=== PATIENT | male | born 1970 | race Caucasian/White ===

== ENCOUNTER 2017-12-10 10:22 | Outpatient (CLI) | payer BC ==
[~2017-12-10 10:22] MED LIST: LISI-600 PO; METF500T PO
== END 2017-12-10 11:13 | disposition home or self-care (01) ==
LOC: WOUND CARE 10:22 → EDSTATUS 10:30 → WOUND CARE 11:13
PROVIDERS: ATTEND Surgery
DX: E11.621 Type 2 diabetes mellitus with foot ulcer (principal); L97.511 Non-pressure chronic ulcer of other part of right foot limited to breakdown of skin; L97.521 Non-pressure chronic ulcer of other part of left foot limited to breakdown of skin; E11.42 Type 2 diabetes mellitus with diabetic polyneuropathy; I10 Essential (primary) hypertension; Z72.89 Other problems related to lifestyle
CPT/HCPCS: 36416; 82948; 99215

== ENCOUNTER 2019-08-26 08:15 | Day surgery (SDC) | payer BC | END 2019-08-26 10:41 | disposition home or self-care (01) | LOC: WOUND CARE 08:15 | PROVIDERS: ATTEND Surgery | DX: E11.621 Type 2 diabetes mellitus with foot ulcer (principal); L97.512 Non-pressure chronic ulcer of other part of right foot with fat layer exposed; E11.42 Type 2 diabetes mellitus with diabetic polyneuropathy; E11.65 Type 2 diabetes mellitus with hyperglycemia; I10 Essential (primary) hypertension; Z72.89 Other problems related to lifestyle | CPT/HCPCS: 36416; 82948; 97597; A4663; A6021 ==

== ENCOUNTER 2019-09-02 08:20 | Outpatient (CLI) | payer BC | END 2019-09-02 10:04 | disposition home or self-care (01) | LOC: WOUND CARE 08:20 → EDSTATUS 08:30 → WOUND CARE 10:04 | PROVIDERS: ATTEND Surgery | DX: E11.621 Type 2 diabetes mellitus with foot ulcer (principal); L97.512 Non-pressure chronic ulcer of other part of right foot with fat layer exposed; E11.42 Type 2 diabetes mellitus with diabetic polyneuropathy; E11.65 Type 2 diabetes mellitus with hyperglycemia; I10 Essential (primary) hypertension; Z72.89 Other problems related to lifestyle | CPT/HCPCS: 36416; 82948; G0463; A4663; A6021; A6154; A6446 ==

== ENCOUNTER 2019-09-09 07:55 | Day surgery (SDC) | payer BC ==
[2019-09-09] MEDS ORDERED: LIDOcaine 2% 5ml jelly ONE (09:39)
== END 2019-09-09 10:34 | disposition home or self-care (01) ==
LOC: WOUND CARE 07:55
PROVIDERS: ATTEND Surgery
DX: E11.621 Type 2 diabetes mellitus with foot ulcer (principal); L97.512 Non-pressure chronic ulcer of other part of right foot with fat layer exposed; E11.42 Type 2 diabetes mellitus with diabetic polyneuropathy; E11.65 Type 2 diabetes mellitus with hyperglycemia; I10 Essential (primary) hypertension; Z72.89 Other problems related to lifestyle
CPT/HCPCS: 36416; 82948; 97597; A6209; A4663; A6021; A6446

== ENCOUNTER 2019-09-14 09:30 | Day surgery (SDC) | payer BC ==
[2019-09-14] MEDS ORDERED: LIDOcaine 2% 5ml jelly ONE (10:17)
== END 2019-09-14 11:00 | disposition home or self-care (01) ==
LOC: WOUND CARE 09:30
PROVIDERS: ATTEND Surgery
DX: E11.621 Type 2 diabetes mellitus with foot ulcer (principal); L97.512 Non-pressure chronic ulcer of other part of right foot with fat layer exposed; E11.42 Type 2 diabetes mellitus with diabetic polyneuropathy; E11.65 Type 2 diabetes mellitus with hyperglycemia; I10 Essential (primary) hypertension; Z72.89 Other problems related to lifestyle
CPT/HCPCS: 11042; 36416; 82948; 87070; 87075; 87102; 87176; A6266; 87076; 87077; 87186; A4663; A6021; A6446

== ENCOUNTER 2019-09-16 08:30 | Day surgery (SDC) | payer BC | END 2019-09-16 10:25 | disposition home or self-care (01) | LOC: WOUND CARE 08:30 | PROVIDERS: ATTEND Surgery | DX: E11.621 Type 2 diabetes mellitus with foot ulcer (principal); L97.515 Non-pressure chronic ulcer of other part of right foot with muscle involvement without evidence of necrosis; E11.42 Type 2 diabetes mellitus with diabetic polyneuropathy; E11.65 Type 2 diabetes mellitus with hyperglycemia; I10 Essential (primary) hypertension; Z72.89 Other problems related to lifestyle | CPT/HCPCS: 11042; 11043; 36416; A6266; 82948; A4663; A6021; A6154; A6446 ==

== ENCOUNTER 2019-09-20 08:30 | Day surgery (SDC) | payer BC ==
[2019-09-20] MEDS ORDERED: LIDOcaine 2% 5ml jelly ONE ×2 (09:09→09:14)
== END 2019-09-20 11:15 | disposition home or self-care (01) ==
LOC: WOUND CARE 08:30
PROVIDERS: ATTEND Surgery
DX: E11.621 Type 2 diabetes mellitus with foot ulcer (principal); L97.515 Non-pressure chronic ulcer of other part of right foot with muscle involvement without evidence of necrosis; E11.42 Type 2 diabetes mellitus with diabetic polyneuropathy; E11.65 Type 2 diabetes mellitus with hyperglycemia; I10 Essential (primary) hypertension; Z72.89 Other problems related to lifestyle
CPT/HCPCS: 11043; 36416; 82948; 97605; A4663; A6021; A6446

== ENCOUNTER 2019-09-23 08:30 | Day surgery (SDC) | payer BC ==
[2019-09-23] MEDS ORDERED: LIDOcaine 2% 5ml jelly ONE (09:29)
[2019-09-23] MEDS ORDERED: LIDOcaine/PRILOcaine 5gm cream TP ONE (09:33)
[2019-09-23] MEDS ORDERED: LISI1TAB29 PO (14:27)
== END 2019-09-23 11:20 | disposition home or self-care (01) ==
LOC: WOUND CARE 08:30
PROVIDERS: ATTEND Surgery
DX: E11.621 Type 2 diabetes mellitus with foot ulcer (principal); L97.513 Non-pressure chronic ulcer of other part of right foot with necrosis of muscle; E11.42 Type 2 diabetes mellitus with diabetic polyneuropathy; E11.65 Type 2 diabetes mellitus with hyperglycemia; I10 Essential (primary) hypertension; Z72.89 Other problems related to lifestyle
CPT/HCPCS: 11043; 36416; 82948; 97605; A4663; A6021; A6154; A6446

== ENCOUNTER 2019-09-23 11:20 | Inpatient (IN) | payer BC ==
[~2019-09-23] VITALS: Ht 185.4 cm; Wt 100.0 kg
--- NOTE | 2019-09-23 11:56 | NUR ---
Received patient report from CHICHO Gonzales. Awaiting patient arrival.
[2019-09-23 12:15] VITALS: BP 126/91
--- NOTE | 2019-09-23 12:15 | NUR ---
Patient arrived to floor. Abdirizak sanches.
[2019-09-23] MEDS: normal saline 1000ml 1,000 ML IV SCH (12:48)
[2019-09-23] MEDS ORDERED: magnesium Cl slow-release 64mg tablet PO PRN (12:50)
[2019-09-23] MEDS ORDERED: potassium CL 10mEq/100ml bag 100 ML IV PRN ×2 (12:50)
[2019-09-23] MEDS ORDERED: magnesium 4gm in 100ml NS 100 ML IV PRN (12:50)
[2019-09-23] MEDS ORDERED: potassium Cl 20 mEq SR tablet PO PRN (12:50)
[2019-09-23] MEDS ORDERED: magnesium 2GM in 50ml NS 50 ML IV PRN (12:50)
[2019-09-23] MEDS ORDERED: LISI1TAB29 PO (14:27)
--- NOTE | 2019-09-23 16:29 | NUR ---
Patient set up to [facility] wound vac.
[2019-09-23 18:00] VITALS: BP 148/86
[2019-09-23] MEDS ORDERED: piperacillin/tazo 3.375gm/50ml 50 ML IV ONE (18:08)
--- NOTE | 2019-09-23 18:09 | NUR ---
Problems reprioritized. Patient report given, questions answered & plan of care reviewed with CHICHO Kay.
--- NOTE | 2019-09-23 18:09 | NUR ---
Patient in room [facility] 347A. I have received report from CHICHO Chavez and had the opportunity to ask questions and assume patient care. Patient denies CP, n/v, dizziness, pain. Will call pharmacy to request antibiotics (Vanco,and zosyn)
--- NOTE | 2019-09-23 18:10 | NUR ---
Patient in room [facility] 347A. I have received report from CHICHO Heredia and had the opportunity to ask questions and assume patient care.
--- NOTE | 2019-09-23 19:24 | NUR ---
Called pharmacy to request Zosyn and vancomycin
[2019-09-23 19:32] LABS: ALANINE AMINOTRANSFERASE 32 U/L (12-78); ALBUMIN/GLOBULIN RATIO 0.5 (1.1-1.5); ALKALINE PHOSPHATASE 104 IU/L (46-116); ANION GAP 9 (8-16); ASPARTATE AMINO TRANSFERASE 17 U/L (10-37); BILIRUBIN,TOTAL 0.5 MG/DL (0.1-1.0); BLOOD UREA NITROGEN 11 MG/DL (7-18); BUN/CREATININE RATIO 11.5 (5.4-32.0); CALCIUM 9.8 MG/DL (8.5-10.1); CHLORIDE 101 MMOL/L (99-107); CREATININE 0.96 MG/DL (0.60-1.10); GLUCOSE 117 MG/DL (70-104); POTASSIUM 3.5 MMOL/L (3.5-5.1); SODIUM 137 MMOL/L (135-145); TOTAL CARBON DIOXIDE 27.1 MMOL/L (24-32); TOTAL PROTEIN 8.5 G/DL (6.4-8.2); eGFR 83 ML/MIN
[2019-09-23] MEDS: vancomycin/NS 1 GM ADD-VANTAGE 250 ML IV SCH ×2 (20:41→22:51)
[2019-09-24] VITALS: BP 131/83
[2019-09-24] MEDS: VANCOmycin 1250MG/NS 250ml Bag 250 ML IV SCH ×3 (04:27→20:39)
[2019-09-24 05:17] LABS: BASOPHILS % (AUTO) 0.5 % (0-1); EOSINOPHILS # (AUTO) 0.2 X10'3 (0-0.9); LYMPHOCYTES # (AUTO) 3.1 X10'3 (1.1-4.8); LYMPHOCYTES % (AUTO) 34.6 % (21-51); MEAN CORPUSCULAR HEMOGLOBIN 30.9 PG (27.0-31.0); MEAN CORPUSCULAR HGB CONC 35.1 g/dL (33.0-36.5); MEAN CORPUSCULAR VOLUME 87.8 FL (78-98); MEAN PLATELET VOLUME 7.3 FL (7.4-10.4); MONOCYTES # (AUTO) 0.8 X10'3 (0-0.9); MONOCYTES % (AUTO) 8.5 % (2-12); NEUTROPHILS # (AUTO) 4.8 X10'3 (1.8-7.7); NEUTROPHILS % (AUTO) 54.4 % (42-75); PLATELET COUNT 427 X10'3 (140-440); RED BLOOD COUNT 3.87 X10'6 (4.70-6.10); RED CELL DISTRIBUTION WIDTH 13.1 % (11.5-14.5); WHITE BLOOD COUNT 8.9 X10'3 (4.5-11.0)
[2019-09-24 05:19] LABS: HEMOGLOBIN A1C 7.1 % (4.5-6.2)
[2019-09-24 05:35] LABS: ALBUMIN 2.8 G/DL (3.4-5.0); ANION GAP 9 (8-16); BLOOD UREA NITROGEN 11 MG/DL (7-18); BUN/CREATININE RATIO 11.1 (5.4-32.0); CALCIUM 9.3 MG/DL (8.5-10.1); CHLORIDE 102 MMOL/L (99-107); CREATININE 0.99 MG/DL (0.60-1.10); GLUCOSE 110 MG/DL (70-104); MAGNESIUM 1.2 MG/DL (1.5-2.4); POTASSIUM 3.4 MMOL/L (3.5-5.1); SODIUM 138 MMOL/L (135-145); TOTAL CARBON DIOXIDE 26.6 MMOL/L (24-32); eGFR 80 ML/MIN
--- NOTE | 2019-09-24 06:28 | NUR ---
Problems reprioritized. Patient report given, questions answered & plan of care reviewed with CHICHO Chavez. Pt in stable condition at shift change.
[2019-09-24] MEDS: potassium Cl 20 mEq SR tablet PO PRN ×3 (07:31→16:37)
[2019-09-24] MEDS: K and/or MAG REPLACEMENT MC SCH (08:00)
[2019-09-24 09:17] VITALS: BP 118/78
[2019-09-24] MEDS: piperacillin/tazo 3.375gm/50ml 50 ML IV SCH ×3 (09:21→23:32)
[2019-09-24 11:57] VITALS: BP 125/87
[2019-09-24] MEDS ORDERED: HYDROCHLOROTHIAZIDE PO SCH (15:00)
[2019-09-24] MEDS ORDERED: LISINOPRIL PO SCH (15:00)
[2019-09-24] MEDS: lisinopril 20mg tablet PO SCH (15:46)
[2019-09-24] MEDS: HYDROchlorothiazide 25mg tablet PO SCH (15:46)
--- NOTE | 2019-09-24 16:11 | NUR ---
WOUND VAC EDUCATION PROVIDED BY WOUND CARE 1. Patient instructed to call the Wound Center or their Home Health Agency immediately if: * They notice a change in the color or amount of the fluid in the canister. * Their wound looks more red than usual or has a foul smell. * The skin around their wound looks reddened or irritated. * The dressing feels loose or appears to be loose. * They experience any increase or changes in their pain. * The alarm will not turn off. 2. Patient instructed that they should not be disconnected from suction for more than 2 hours at a time. * If they are not able to get the suction back on, they need to remove the dressing and take all of the foam out of the wound. * Then moisten sterile gauze with normal saline and place on/in the wound. * Change the dressing once a day until arrangements have been made to replace the wound vac dressing. 3. Patient instructed to turn the wound vac machine OFF and call 911 or go to the ED immediately if their canister fills rapidly with blood. 4. If any of these occur while in the hospital tell a nurse immediately. Addendum: 09/24/19 at 1611 by Enedelia Danielle RN Amended: Links added.
--- NOTE | 2019-09-24 17:49 | NUR ---
DM consult: Pt with A1c 7.1 admit from the wound care clinic for IV abx for his diabetic foot ulcer. Attempted visit with pt at bedside however pt unavailable out of room. Patient's daughter at bedside provided with protein and DM education with referral to outpatient DM class and RD contact information. Encouraged daughter to reach out if her or pt has any questions. Pt currently on heart healthy CHO controlled diet documented with 100% PO intake. D/w dietary to send double protein BIDLD for satiety and wound healing/skin integrity. [facility] 09/23. Will continue to follow. Recommendations: 1) Continue heart healthy CHO controlled diet 2) Double protein BIDLD 3) Monitor need for verbal f/u educations 4) Bowel care 5) Wt per rx Addendum: 09/24/19 at [address] Amended: Links added.
[2019-09-24 18:00] VITALS: BP 131/81
--- NOTE | 2019-09-24 18:24 | NUR ---
Problems reprioritized. Patient report given, questions answered & plan of care reviewed with CHICHO Lacey.
[2019-09-24] MEDS: lactobacillus rhamnosus 10,000 MMU CELLS/CAPSULE PO SCH (20:39)
[2019-09-25] VITALS: BP 118/74
[2019-09-25] MEDS ORDERED: VANCOMYCIN LEVEL IV ONE (04:30)
[2019-09-25] MEDS: VANCOmycin 1250MG/NS 250ml Bag 250 ML IV SCH (04:55)
[2019-09-25 05:33] LABS: BASOPHILS % (AUTO) 0.5 % (0-1); EOSINOPHILS # (AUTO) 0.2 X10'3 (0-0.9); EOSINOPHILS % (AUTO) 1.7 % (0-6); HEMATOCRIT 34.2 % (42.0-52.0); LYMPHOCYTES # (AUTO) 2.8 X10'3 (1.1-4.8); LYMPHOCYTES % (AUTO) 31.8 % (21-51); MEAN CORPUSCULAR HGB CONC 35.2 g/dL (33.0-36.5); MEAN PLATELET VOLUME 7.5 FL (7.4-10.4); MONOCYTES # (AUTO) 0.9 X10'3 (0-0.9); NEUTROPHILS # (AUTO) 4.9 X10'3 (1.8-7.7); PLATELET COUNT 426 X10'3 (140-440); RED BLOOD COUNT 3.88 X10'6 (4.70-6.10); RED CELL DISTRIBUTION WIDTH 13.3 % (11.5-14.5); WHITE BLOOD COUNT 8.8 X10'3 (4.5-11.0)
[2019-09-25 05:36] LABS: ALBUMIN 2.9 G/DL (3.4-5.0); ANION GAP 9 (8-16); BLOOD UREA NITROGEN 14 MG/DL (7-18); BUN/CREATININE RATIO 10.4 (5.4-32.0); CALCIUM 9.1 MG/DL (8.5-10.1); CHLORIDE 105 MMOL/L (99-107); CREATININE 1.35 MG/DL (0.60-1.10); GLUCOSE 116 MG/DL (70-104); MAGNESIUM 1.5 MG/DL (1.5-2.4); POTASSIUM 4.1 MMOL/L (3.5-5.1); SODIUM 141 MMOL/L (135-145); TOTAL CARBON DIOXIDE 27.3 MMOL/L (24-32); eGFR 56 ML/MIN
[2019-09-25 05:39] LABS: VANCOMYCIN,TROUGH 28.2 UG/ML (6.0-14.0)
[2019-09-25 07:25] VITALS: BP 101/64
[2019-09-25] MEDS: K and/or MAG REPLACEMENT MC SCH (08:00)
[2019-09-25] MEDS: HYDROchlorothiazide 25mg tablet PO SCH (08:05)
[2019-09-25] MEDS: lisinopril 20mg tablet PO SCH (08:06)
[2019-09-25] MEDS: piperacillin/tazo 3.375gm/50ml 50 ML IV SCH ×3 (08:06→23:58)
[2019-09-25] MEDS: lactobacillus rhamnosus 10,000 MMU CELLS/CAPSULE PO SCH ×2 (08:06→19:47)
[2019-09-25] MEDS ORDERED: gadobutrol 10mmol/10ml inj. IV ONE (10:31)
[2019-09-25 11:40] VITALS: BP 115/80
[2019-09-25] MEDS: normal saline 1000ml 1,000 ML IV SCH (15:17)
[2019-09-25] MEDS: VANCOMYCIN 750MG IV in NS 250 ML IV SCH ×2 (15:17→21:28)
[2019-09-25 18:00] VITALS: BP 113/77
--- NOTE | 2019-09-25 18:00 | NUR ---
Problems reprioritized. Patient report given, questions answered & plan of care reviewed with CHICHO Lacey.
--- NOTE | 2019-09-25 18:32 | NUR ---
Patient in room [facility]. I have received report from CHICHO Ramírez and had the opportunity to ask questions and assume patient care.
[2019-09-25 19:00] VITALS: BP 113/77
[2019-09-26 00:30] VITALS: BP 112/79
[2019-09-26] MEDS: VANCOMYCIN 750MG IV in NS 250 ML IV SCH ×2 (05:09→13:05)
[2019-09-26] MEDS: normal saline 1000ml 1,000 ML IV SCH ×3 (05:14→23:43)
[2019-09-26 05:27] LABS: ALBUMIN 2.6 G/DL (3.4-5.0); ANION GAP 8 (8-16); BLOOD UREA NITROGEN 22 MG/DL (7-18); BUN/CREATININE RATIO 7.6 (5.4-32.0); CALCIUM 8.5 MG/DL (8.5-10.1); CHLORIDE 102 MMOL/L (99-107); CREATININE 2.89 MG/DL (0.60-1.10); GLUCOSE 124 MG/DL (70-104); MAGNESIUM 1.7 MG/DL (1.5-2.4); POTASSIUM 3.9 MMOL/L (3.5-5.1); SODIUM 137 MMOL/L (135-145); TOTAL CARBON DIOXIDE 26.8 MMOL/L (24-32); eGFR 23 ML/MIN
[2019-09-26 05:29] LABS: BASOPHILS # (AUTO) 0.1 X10'3 (0-0.2); BASOPHILS % (AUTO) 0.8 % (0-1); EOSINOPHILS # (AUTO) 0.2 X10'3 (0-0.9); EOSINOPHILS % (AUTO) 1.8 % (0-6); HEMATOCRIT 31.8 % (42.0-52.0); HEMOGLOBIN 11.1 g/dl (14.0-17.9); LYMPHOCYTES % (AUTO) 24.5 % (21-51); MEAN CORPUSCULAR HEMOGLOBIN 31.1 PG (27.0-31.0); MEAN CORPUSCULAR HGB CONC 34.8 g/dL (33.0-36.5); MEAN CORPUSCULAR VOLUME 89.3 FL (78-98); MEAN PLATELET VOLUME 7.6 FL (7.4-10.4); MONOCYTES # (AUTO) 0.9 X10'3 (0-0.9); MONOCYTES % (AUTO) 10.6 % (2-12); NEUTROPHILS # (AUTO) 5.1 X10'3 (1.8-7.7); NEUTROPHILS % (AUTO) 62.3 % (42-75); PLATELET COUNT 352 X10'3 (140-440); RED BLOOD COUNT 3.56 X10'6 (4.70-6.10); RED CELL DISTRIBUTION WIDTH 12.8 % (11.5-14.5); WHITE BLOOD COUNT 8.2 X10'3 (4.5-11.0)
--- NOTE | 2019-09-26 06:25 | NUR ---
Problems reprioritized. Patient report given, questions answered & plan of care reviewed with CHICHO Lay.
--- NOTE | 2019-09-26 06:41 | NUR ---
Patient in room [facility]. I have received report from Deepthi VALENTINO and Reena RN and had the opportunity to ask questions and assume patient care.
[2019-09-26 07:00] VITALS: BP 110/66
[2019-09-26] MEDS: lactobacillus rhamnosus 10,000 MMU CELLS/CAPSULE PO SCH ×2 (07:55→19:04)
[2019-09-26] MEDS: HYDROchlorothiazide 25mg tablet PO SCH (07:56)
[2019-09-26] MEDS: lisinopril 20mg tablet PO SCH (07:56)
[2019-09-26] MEDS: piperacillin/tazo 3.375gm/50ml 50 ML IV SCH ×3 (07:56→23:43)
[2019-09-26] MEDS: K and/or MAG REPLACEMENT MC SCH (08:00)
[2019-09-26 12:00] VITALS: BP 140/86
[2019-09-26] MEDS ORDERED: VANCOMYCIN LEVEL IV NR (12:30)
--- NOTE | 2019-09-26 13:25 | NUR ---
Received critical lab result Vanco level of 39.8. Notified pharmacist Jacqueline about this, she instructed me to stop the Vancomycin IV infusion. Patient notified about the level of Vanco and the need to stop the infusion.
[2019-09-26 18:00] VITALS: BP 129/83
--- NOTE | 2019-09-26 18:10 | NUR ---
Patient in room [facility]. I have received report from CHICHO Lay and had the opportunity to ask questions and assume patient care.
--- NOTE | 2019-09-26 18:36 | NUR ---
Problems reprioritized. Patient report given, questions answered & plan of care reviewed with Reena RN and Shruti RN.
[2019-09-27] VITALS: BP 135/90
[2019-09-27] MEDS: normal saline 1000ml 1,000 ML IV SCH ×4 (04:20→23:38)
[2019-09-27 05:31] LABS: ALBUMIN 2.5 G/DL (3.4-5.0); ANION GAP 11 (8-16); BLOOD UREA NITROGEN 23 MG/DL (7-18); BUN/CREATININE RATIO 6.6 (5.4-32.0); CALCIUM 7.9 MG/DL (8.5-10.1); CHLORIDE 108 MMOL/L (99-107); CREATININE 3.47 MG/DL (0.60-1.10); GLUCOSE 113 MG/DL (70-104); MAGNESIUM 1.7 MG/DL (1.5-2.4); SODIUM 142 MMOL/L (135-145); TOTAL CARBON DIOXIDE 23.1 MMOL/L (24-32); eGFR 19 ML/MIN
[2019-09-27 05:38] LABS: BASOPHILS # (AUTO) 0.1 X10'3 (0-0.2); BASOPHILS % (AUTO) 0.7 % (0-1); EOSINOPHILS # (AUTO) 0.1 X10'3 (0-0.9); EOSINOPHILS % (AUTO) 1.9 % (0-6); HEMATOCRIT 29.8 % (42.0-52.0); HEMOGLOBIN 10.6 g/dl (14.0-17.9); LYMPHOCYTES # (AUTO) 1.6 X10'3 (1.1-4.8); LYMPHOCYTES % (AUTO) 20.7 % (21-51); MEAN CORPUSCULAR HEMOGLOBIN 31.3 PG (27.0-31.0); MEAN CORPUSCULAR HGB CONC 35.6 g/dL (33.0-36.5); MEAN CORPUSCULAR VOLUME 87.8 FL (78-98); MEAN PLATELET VOLUME 7.5 FL (7.4-10.4); MONOCYTES # (AUTO) 0.7 X10'3 (0-0.9); MONOCYTES % (AUTO) 9.2 % (2-12); NEUTROPHILS # (AUTO) 5.2 X10'3 (1.8-7.7); NEUTROPHILS % (AUTO) 67.5 % (42-75); PLATELET COUNT 318 X10'3 (140-440); RED BLOOD COUNT 3.39 X10'6 (4.70-6.10); WHITE BLOOD COUNT 7.7 X10'3 (4.5-11.0)
--- NOTE | 2019-09-27 06:34 | NUR ---
Problems reprioritized. Patient report given, questions answered & plan of care reviewed with CHICHO Douglas.
--- NOTE | 2019-09-27 06:37 | NUR ---
Patient in room [facility]. I have received report from Stella and had the opportunity to ask questions and assume patient care.
[2019-09-27] MEDS: K and/or MAG REPLACEMENT MC SCH (06:46)
[2019-09-27] MEDS: lactobacillus rhamnosus 10,000 MMU CELLS/CAPSULE PO SCH ×2 (07:36→21:43)
[2019-09-27] MEDS: piperacillin/tazo 3.375gm/50ml 50 ML IV SCH ×3 (07:36→23:32)
[2019-09-27 07:48] VITALS: BP 139/83
--- NOTE | 2019-09-27 10:42 | NUR ---
PAGER ID: [phone] MESSAGE: OMA MURPHY. BP 156/96. SURGICAL MARCO 2071
[2019-09-27 10:57] VITALS: BP 156/96
[2019-09-27 14:27] VITALS: BP 147/88
--- NOTE | 2019-09-27 14:46 | NUR ---
WOUND VAC EDUCATION PROVIDED BY WOUND CARE 1. Patient instructed to call the Wound Center or their Home Health Agency immediately if: * They notice a change in the color or amount of the fluid in the canister. * Their wound looks more red than usual or has a foul smell. * The skin around their wound looks reddened or irritated. * The dressing feels loose or appears to be loose. * They experience any increase or changes in their pain. * The alarm will not turn off. 2. Patient instructed that they should not be disconnected from suction for more than 2 hours at a time. * If they are not able to get the suction back on, they need to remove the dressing and take all of the foam out of the wound. * Then moisten sterile gauze with normal saline and place on/in the wound. * Change the dressing once a day until arrangements have been made to replace the wound vac dressing. 3. Patient instructed to turn the wound vac machine OFF and call 911 or go to the ED immediately if their canister fills rapidly with blood. 4. If any of these occur while in the hospital tell a nurse immediately. DIABETIC FOOT CARE EDUCATION PROVIDED BY WOUND CARE * Wash your feet daily with lukewarm water and soap. * Dry your feet well, especially between the toes. * Keep the skin moisturized with lotion, but do not apply it between the toes. * Check your feet for blisters, cuts or sores. * Use an emery board to shape your toenails even with the ends of your toes. * Change daily into clean, soft socks or stockings, not too big or too small. * Keep your feet warm and dry. * Preferably wear special padded socks and shoes that fit well. * Never walk barefoot indoors or outdoors. * Examine your shoes everyday for cracks, madi, nails or anything that could hurt your feet. * Tell your doctor if you find any of these problems or have any concerns after examining your feet. Addendum: 09/27/19 at 1446 by Sherrie Orellana RN Amended: Links added.
--- NOTE | 2019-09-27 16:11 | NUR ---
reviewed student nurse charting
--- NOTE | 2019-09-27 18:20 | NUR ---
Patient in room [facility] 347. I have received report from Stella VALENTINO and had the opportunity to ask questions and assume patient care.
--- NOTE | 2019-09-27 18:27 | NUR ---
Problems reprioritized. Patient report given, questions answered & plan of care reviewed with QUINN VALENTINO.
[2019-09-27 19:00] VITALS: BP 156/87
--- NOTE | 2019-09-27 19:00 | NUR ---
Patients mum had brought in tacos from [employer], stating that they are only 13grams of carbs. Patient only ate one. Patient has not yet protocol and 1700 BS was 102. Addendum: 09/28/19 at 0111 by Yadira Laguna RN Amended: Links added.
[2019-09-27 19:45] LABS: CLARITY,URINE CLEAR (Clear); COLOR,URINE YELLOW (Yellow); GLUCOSE, URINE NEGATIVE (Neg); KETONES,URINE TRACE mg/dl (Neg); LEUKOCYTE ESTERASE ,URINE NEGATIVE (Neg); NITRITES, URINE NEGATIVE (Neg); OCCULT BLOOD,URINE NEGATIVE (Neg); PH,URINE 5.5 (4.8-8.0); PROTEIN,URINE NEGATIVE (Neg); UROBILINOGEN,URINE 0.2 E.U/dL (0.2-1.0)
[2019-09-27 19:47] LABS: UA COLLECTION TYPE NON-SPECIFIED
[2019-09-27] MEDS ORDERED: mag hydrox/Alum hydrox/simeth 30ml oral suspension PO PRN (21:30)
[2019-09-28] VITALS: BP 150/85
[2019-09-28] MEDS: normal saline 1000ml 1,000 ML IV SCH ×3 (00:57→19:54)
[2019-09-28 04:58] LABS: BASOPHILS % (AUTO) 0.6 % (0-1); EOSINOPHILS # (AUTO) 0.1 X10'3 (0-0.9); EOSINOPHILS % (AUTO) 1.8 % (0-6); HEMATOCRIT 32.2 % (42.0-52.0); HEMOGLOBIN 11.2 g/dl (14.0-17.9); LYMPHOCYTES # (AUTO) 1.6 X10'3 (1.1-4.8); LYMPHOCYTES % (AUTO) 22.2 % (21-51); MEAN CORPUSCULAR HEMOGLOBIN 30.6 PG (27.0-31.0); MEAN CORPUSCULAR HGB CONC 34.7 g/dL (33.0-36.5); MEAN CORPUSCULAR VOLUME 88.2 FL (78-98); MEAN PLATELET VOLUME 7.7 FL (7.4-10.4); MONOCYTES # (AUTO) 0.6 X10'3 (0-0.9); MONOCYTES % (AUTO) 8.8 % (2-12); NEUTROPHILS # (AUTO) 4.7 X10'3 (1.8-7.7); NEUTROPHILS % (AUTO) 66.6 % (42-75); PLATELET COUNT 312 X10'3 (140-440); RED BLOOD COUNT 3.65 X10'6 (4.70-6.10); RED CELL DISTRIBUTION WIDTH 12.9 % (11.5-14.5); WHITE BLOOD COUNT 7.1 X10'3 (4.5-11.0)
[2019-09-28 05:21] LABS: ALBUMIN 2.5 G/DL (3.4-5.0); ANION GAP 14 (8-16); BLOOD UREA NITROGEN 20 MG/DL (7-18); BUN/CREATININE RATIO 5.5 (5.4-32.0); CALCIUM 8.7 MG/DL (8.5-10.1); CHLORIDE 107 MMOL/L (99-107); CREATININE 3.66 MG/DL (0.60-1.10); GLUCOSE 95 MG/DL (70-104); LACTATE DEHYDROGENASE 128 U/L (85-227); MAGNESIUM 1.7 MG/DL (1.5-2.4); POTASSIUM 3.9 MMOL/L (3.5-5.1); SODIUM 142 MMOL/L (135-145); eGFR 18 ML/MIN
--- NOTE | 2019-09-28 06:30 | NUR ---
Problems reprioritized. Patient report given, questions answered & plan of care reviewed with Alayna RN.
--- NOTE | 2019-09-28 06:35 | NUR ---
Patient in room [facility]. I have received report from CHICHO May and had the opportunity to ask questions and assume patient care.
[2019-09-28 07:30] VITALS: BP 146/87
[2019-09-28] MEDS: K and/or MAG REPLACEMENT MC SCH (08:00)
[2019-09-28] MEDS: piperacillin/tazo 3.375gm/50ml 50 ML IV SCH ×3 (08:34→23:17)
[2019-09-28] MEDS: lactobacillus rhamnosus 10,000 MMU CELLS/CAPSULE PO SCH ×2 (08:34→19:56)
[2019-09-28 11:00] VITALS: BP 154/87
[2019-09-28 11:50] VITALS: BP 154/87
[2019-09-28] MEDS ORDERED: methylPREDNISolone sod succ 125mg/2ml vial IV ONE (15:30)
--- NOTE | 2019-09-28 18:14 | NUR ---
Problems reprioritized. Patient report given, questions answered & plan of care reviewed with CHICHO May.
--- NOTE | 2019-09-28 18:20 | NUR ---
Patient in room [facility]. I have received report from Alayna VALENTINO and had the opportunity to ask questions and assume patient care.
[2019-09-28 19:00] VITALS: BP 157/83
--- NOTE | 2019-09-28 23:33 | NUR ---
Patients PIV to RFA is due to be changed. However, PIV is looking/feeling good and patient states "if it's good, lets leave it alone". Instructed patient to let me know if anything changes. Addendum: 09/28/19 at 2336 by Yadira Laguna RN Amended: Links added.
[2019-09-29] VITALS: BP 147/88
[2019-09-29] MEDS: normal saline 1000ml 1,000 ML IV SCH ×4 (03:30→23:00)
--- NOTE | 2019-09-29 03:47 | NUR ---
Patient has been taking care of his own bathing needs and declined any help. Addendum: 09/29/19 at 0348 by Yadira Laguna RN Amended: Links added.
[2019-09-29 04:27] LABS: ALANINE AMINOTRANSFERASE 13 U/L (12-78); ALBUMIN 2.3 G/DL (3.4-5.0); ALBUMIN/GLOBULIN RATIO 0.5 (1.1-1.5); ALKALINE PHOSPHATASE 71 IU/L (46-116); ANION GAP 12 (8-16); ASPARTATE AMINO TRANSFERASE 16 U/L (10-37); BILIRUBIN,TOTAL 0.5 MG/DL (0.1-1.0); BLOOD UREA NITROGEN 26 MG/DL (7-18); BUN/CREATININE RATIO 7.7 (5.4-32.0); CALCIUM 7.8 MG/DL (8.5-10.1); CHLORIDE 106 MMOL/L (99-107); CREATININE 3.39 MG/DL (0.60-1.10); GLUCOSE 156 MG/DL (70-104); MAGNESIUM 1.7 MG/DL (1.5-2.4); SODIUM 138 MMOL/L (135-145); TOTAL CARBON DIOXIDE 19.8 MMOL/L (24-32); eGFR 19 ML/MIN
[2019-09-29 04:29] LABS: POTASSIUM 4.5 MMOL/L (3.5-5.1)
--- NOTE | 2019-09-29 06:00 | NUR ---
Patient in room [facility]. I have received report from QUINN VALENTINO and had the opportunity to ask questions and assume patient care.
--- NOTE | 2019-09-29 06:18 | NUR ---
Problems reprioritized. Patient report given, questions answered & plan of care reviewed with CJ CORONA RN.
[2019-09-29 07:00] VITALS: BP 159/90
[2019-09-29 07:35] LABS: COMPLEMENT C3, SERUM 123 mg/dL (82-167); COMPLEMENT C4, SERUM 25 mg/dL (14-44)
[2019-09-29 07:46] VITALS: BP 159/90
[2019-09-29] MEDS: piperacillin/tazo 3.375gm/50ml 50 ML IV SCH ×4 (08:00→23:55)
[2019-09-29] MEDS: K and/or MAG REPLACEMENT MC SCH (08:00)
[2019-09-29] MEDS: lactobacillus rhamnosus 10,000 MMU CELLS/CAPSULE PO SCH ×2 (10:03→20:43)
--- NOTE | 2019-09-29 10:10 | NUR ---
[employer] TECH IN DOWN TIME THIS MORNING. MEDS ADMIN DURING DOWNTIME WERE GIVEN AND CHARTED WITH PAPER CHARTING. [employer] CAME BACK AT 0810
[2019-09-29 12:19] VITALS: BP 155/90
--- NOTE | 2019-09-29 12:30 | NUR ---
0800 DOSE OF ZOSYN WAS GIVEN DURING DOWN TIME CHARTING
--- NOTE | 2019-09-29 12:32 | NUR ---
Reassessment: Pt with osteomyelitis, on abx for tx per MD note. Pt with SHUKRI with possible acute interstitial nephritis, no dialysis at this time per MD note. Renal diet has been added to diet order. Pt documented with fluctuating PO intake, overall 75-100% receiving double protein BIDLD meeting nutrient needs. [facility] 09/28. Will continue to follow. Recommendations: 1) Continue heart healthy CHO controlled diet 2) Double protein BIDLD 3) Monitor need for verbal f/u educations 4) Bowel care 5) Wt per rx Addendum: 09/29/19 at [address] Amended: Links added.
[2019-09-29 13:10] LABS: A/G RATIO 0.7 (0.7-1.7); ALBUMIN 2.6 g/dL (2.9-4.4); BETA GLOBULIN 0.9 g/dL (0.7-1.3); GAMMA GLOBULIN 1.3 g/dL (0.4-1.8); GLOBULIN, TOTAL 3.5 g/dL (2.2-3.9); M-SPIKE Not Observed g/dL (Not Observed); PROTEIN, TOTAL, SERUM 6.1 g/dL (6.0-8.5)
[2019-09-29] MEDS: hyDRALAzine 10mg tablet PO SCH ×2 (15:28→23:55)
--- NOTE | 2019-09-29 18:30 | NUR ---
Patient in room [facility]. I have received report from NOAH VALENTINO and had the opportunity to ask questions and assume patient care.
[2019-09-29 20:00] VITALS: BP 144/79
[2019-09-30] VITALS: BP 137/86
[2019-09-30] MEDS: normal saline 1000ml 1,000 ML IV SCH ×3 (01:50→16:35)
[2019-09-30] MEDS: acetaminophen 325mg tablet PO PRN ×3 (02:41→17:17)
[2019-09-30 05:12] LABS: MAGNESIUM 1.7 MG/DL (1.5-2.4)
--- NOTE | 2019-09-30 06:15 | NUR ---
Problems reprioritized. Patient report given, questions answered & plan of care reviewed with NOAH VALENTINO.
--- NOTE | 2019-09-30 06:19 | NUR ---
Patient in room [facility]. I have received report from CJ CORONA RN and had the opportunity to ask questions and assume patient care.
[2019-09-30 07:29] VITALS: BP 155/93
[2019-09-30 07:33] VITALS: BP 155/93
[2019-09-30] MEDS: lactobacillus rhamnosus 10,000 MMU CELLS/CAPSULE PO SCH ×2 (07:59→20:40)
[2019-09-30] MEDS: hyDRALAzine 10mg tablet PO SCH ×2 (08:00→16:37)
[2019-09-30] MEDS: piperacillin/tazo 3.375gm/50ml 50 ML IV SCH ×2 (08:00→16:35)
[2019-09-30] MEDS: K and/or MAG REPLACEMENT MC SCH (08:00)
[2019-09-30 09:42] LABS: BASOPHILS % (AUTO) 0.6 % (0-1); EOSINOPHILS # (AUTO) 0.2 X10'3 (0-0.9); EOSINOPHILS % (AUTO) 2.6 % (0-6); HEMOGLOBIN 10.3 g/dl (14.0-17.9); LYMPHOCYTES # (AUTO) 1.4 X10'3 (1.1-4.8); LYMPHOCYTES % (AUTO) 19.2 % (21-51); MEAN CORPUSCULAR HEMOGLOBIN 30.8 PG (27.0-31.0); MEAN CORPUSCULAR HGB CONC 34.4 g/dL (33.0-36.5); MEAN CORPUSCULAR VOLUME 89.7 FL (78-98); MONOCYTES # (AUTO) 0.8 X10'3 (0-0.9); MONOCYTES % (AUTO) 10.8 % (2-12); NEUTROPHILS # (AUTO) 4.7 X10'3 (1.8-7.7); NEUTROPHILS % (AUTO) 66.8 % (42-75); PLATELET COUNT 284 X10'3 (140-440); RED BLOOD COUNT 3.35 X10'6 (4.70-6.10); RED CELL DISTRIBUTION WIDTH 13.4 % (11.5-14.5); WHITE BLOOD COUNT 7.1 X10'3 (4.5-11.0)
[2019-09-30 10:00] LABS: ALANINE AMINOTRANSFERASE 19 U/L (12-78); ALBUMIN 2.4 G/DL (3.4-5.0); ALBUMIN/GLOBULIN RATIO 0.5 (1.1-1.5); ALKALINE PHOSPHATASE 67 IU/L (46-116); ANION GAP 13 (8-16); ASPARTATE AMINO TRANSFERASE 18 U/L (10-37); BILIRUBIN,TOTAL 0.5 MG/DL (0.1-1.0); BLOOD UREA NITROGEN 24 MG/DL (7-18); CHLORIDE 112 MMOL/L (99-107); CREATININE 3.42 MG/DL (0.60-1.10); GLUCOSE 102 MG/DL (70-104); POTASSIUM 3.8 MMOL/L (3.5-5.1); SODIUM 145 MMOL/L (135-145); TOTAL CARBON DIOXIDE 20.2 MMOL/L (24-32); TOTAL PROTEIN 6.8 G/DL (6.4-8.2); eGFR 19 ML/MIN
--- NOTE | 2019-09-30 15:17 | NUR ---
Student documentation: I have reviewed all interventions, assessments performed and documented by Jorge Alberto PAINTING
[2019-09-30 15:25] VITALS: BP 161/86
[2019-09-30 16:02] LABS: ATYPICAL PANCA <1:20 titer (Neg:<1:20); CYTOPLASMIC (C-ANCA) <1:20 titer (Neg:<1:20); PERINUCLEAR (P-ANCA) <1:20 titer (Neg:<1:20)
--- NOTE | 2019-09-30 17:09 | NUR ---
Student Medication Administration: medication were reviewed, dispensed, administered and documented per hospital policy by Jorge Alberto MCKINNON
--- NOTE | 2019-09-30 17:24 | NUR ---
Susan LINENS CHANGED Addendum: 09/30/19 at 1725 by Deanne PERALES Amended: Links added.
[2019-09-30 18:00] VITALS: BP 158/89
--- NOTE | 2019-09-30 18:21 | NUR ---
GAVE REPORT TO PRUDENCE RN
--- NOTE | 2019-09-30 18:37 | NUR ---
Patient in room [facility] 347. I have received report from Ana VALENTINO and had the opportunity to ask questions and assume patient care. Patient has family members by his bedside.
[2019-09-30] MEDS: temazepam 15mg capsule PO PRN (21:44)
[2019-10-01] VITALS: BP 131/71
[2019-10-01] MEDS: hyDRALAzine 10mg tablet PO SCH ×3 (00:44→16:08)
[2019-10-01] MEDS: piperacillin/tazo 3.375gm/50ml 50 ML IV SCH ×3 (00:45→16:08)
[2019-10-01] MEDS: normal saline 1000ml 1,000 ML IV SCH ×4 (00:51→20:13)
[2019-10-01 01:10] LABS: CLARITY,URINE CLEAR (Clear); COLOR,URINE YELLOW (Yellow); GLUCOSE, URINE NEGATIVE (Neg); KETONES,URINE NEGATIVE (Neg); LEUKOCYTE ESTERASE ,URINE NEGATIVE (Neg); NITRITES, URINE NEGATIVE (Neg); OCCULT BLOOD,URINE NEGATIVE (Neg); PROTEIN,URINE NEGATIVE (Neg); UROBILINOGEN,URINE 0.2 E.U/dL (0.2-1.0)
[2019-10-01 01:13] LABS: UA COLLECTION TYPE NON-SPECIFIED
--- NOTE | 2019-10-01 01:58 | NUR ---
patient has not met protocol yet Addendum: 10/01/19 at 0159 by Aliza Dill RN Amended: Links added.
--- NOTE | 2019-10-01 02:02 | NUR ---
patient ate food brought in by family members Addendum: 10/01/19 at 0202 by Aliza Dill RN Amended: Links added.
[2019-10-01 04:26] LABS: BASOPHILS % (AUTO) 0.6 % (0-1); EOSINOPHILS # (AUTO) 0.2 X10'3 (0-0.9); EOSINOPHILS % (AUTO) 3.1 % (0-6); HEMATOCRIT 28.8 % (42.0-52.0); HEMOGLOBIN 10.1 g/dl (14.0-17.9); LYMPHOCYTES # (AUTO) 1.6 X10'3 (1.1-4.8); LYMPHOCYTES % (AUTO) 24.4 % (21-51); MEAN CORPUSCULAR HEMOGLOBIN 30.9 PG (27.0-31.0); MEAN CORPUSCULAR HGB CONC 34.9 g/dL (33.0-36.5); MEAN CORPUSCULAR VOLUME 88.7 FL (78-98); MEAN PLATELET VOLUME 7.5 FL (7.4-10.4); MONOCYTES # (AUTO) 0.8 X10'3 (0-0.9); MONOCYTES % (AUTO) 11.3 % (2-12); NEUTROPHILS % (AUTO) 60.6 % (42-75); PLATELET COUNT 244 X10'3 (140-440); RED BLOOD COUNT 3.25 X10'6 (4.70-6.10); RED CELL DISTRIBUTION WIDTH 13.4 % (11.5-14.5); WHITE BLOOD COUNT 6.7 X10'3 (4.5-11.0)
[2019-10-01 04:49] LABS: ALANINE AMINOTRANSFERASE 23 U/L (12-78); ALBUMIN 2.4 G/DL (3.4-5.0); ALBUMIN/GLOBULIN RATIO 0.6 (1.1-1.5); ALKALINE PHOSPHATASE 68 IU/L (46-116); ANION GAP 11 (8-16); ASPARTATE AMINO TRANSFERASE 16 U/L (10-37); BILIRUBIN,TOTAL 0.7 MG/DL (0.1-1.0); BLOOD UREA NITROGEN 18 MG/DL (7-18); BUN/CREATININE RATIO 5.6 (5.4-32.0); CALCIUM 8.2 MG/DL (8.5-10.1); CHLORIDE 110 MMOL/L (99-107); GLUCOSE 88 MG/DL (70-104); POTASSIUM 3.8 MMOL/L (3.5-5.1); SODIUM 141 MMOL/L (135-145); TOTAL CARBON DIOXIDE 19.7 MMOL/L (24-32); TOTAL PROTEIN 6.6 G/DL (6.4-8.2); eGFR 21 ML/MIN
--- NOTE | 2019-10-01 06:34 | NUR ---
Problems reprioritized. Patient report given, questions answered & plan of care reviewed with Alireza VALENTINO. Resting with no apparent distress
--- NOTE | 2019-10-01 06:40 | NUR ---
Patient in room [facility]. I have received report from Aliza VALENTINO and had the opportunity to ask questions and assume patient care.
[2019-10-01 07:00] VITALS: BP 162/91
[2019-10-01] MEDS: lactobacillus rhamnosus 10,000 MMU CELLS/CAPSULE PO SCH ×2 (07:25→20:12)
[2019-10-01] MEDS: K and/or MAG REPLACEMENT MC SCH (08:00)
[2019-10-01 11:00] VITALS: BP 164/83
--- NOTE | 2019-10-01 13:45 | NUR ---
DIABETIC FOOT CARE EDUCATION PROVIDED BY WOUND CARE * Wash your feet daily with lukewarm water and soap. * Dry your feet well, especially between the toes. * Keep the skin moisturized with lotion, but do not apply it between the toes. * Check your feet for blisters, cuts or sores. * Use an emery board to shape your toenails even with the ends of your toes. * Change daily into clean, soft socks or stockings, not too big or too small. * Keep your feet warm and dry. * Preferably wear special padded socks and shoes that fit well. * Never walk barefoot indoors or outdoors. * Examine your shoes everyday for cracks, madi, nails or anything that could hurt your feet. * Tell your doctor if you find any of these problems or have any concerns after examining your feet. Addendum: 10/01/19 at 1345 by Sherrie Orellana RN Amended: Links added.
--- NOTE | 2019-10-01 15:38 | NUR ---
Just spoke to Dr. Cheatham about possible need of PICC line for this patient if he ended up going home on IV antibiotic. He said that he prefer patient not to have PICC line insertion because of the potential need for hemodialysis in the future. He said that we would need to call him first once confirmed that patient really need for IV antibiotic upon discharge
[2019-10-01 18:00] VITALS: BP 152/83
--- NOTE | 2019-10-01 18:23 | NUR ---
Problems reprioritized. Patient report given, questions answered & plan of care reviewed with Prudence RN.
--- NOTE | 2019-10-01 21:24 | NUR ---
Patient ate a taco from home Addendum: 10/01/19 at 2125 by Aliza Dill RN Amended: Links added.
[2019-10-01] MEDS: temazepam 15mg capsule PO PRN (21:34)
[2019-10-02] VITALS: BP 154/87
[2019-10-02] MEDS: piperacillin/tazo 3.375gm/50ml 50 ML IV SCH ×3 (00:47→16:20)
[2019-10-02] MEDS: hyDRALAzine 10mg tablet PO SCH ×3 (00:47→16:20)
[2019-10-02] MEDS: normal saline 1000ml 1,000 ML IV SCH ×2 (02:48→09:16)
[2019-10-02 03:54] LABS: BASOPHILS % (AUTO) 0.7 % (0-1); EOSINOPHILS # (AUTO) 0.3 X10'3 (0-0.9); EOSINOPHILS % (AUTO) 4.7 % (0-6); HEMATOCRIT 27.9 % (42.0-52.0); HEMOGLOBIN 9.7 g/dl (14.0-17.9); LYMPHOCYTES # (AUTO) 1.2 X10'3 (1.1-4.8); LYMPHOCYTES % (AUTO) 21.2 % (21-51); MEAN CORPUSCULAR HGB CONC 34.7 g/dL (33.0-36.5); MEAN CORPUSCULAR VOLUME 89.2 FL (78-98); MEAN PLATELET VOLUME 7.5 FL (7.4-10.4); MONOCYTES # (AUTO) 0.6 X10'3 (0-0.9); MONOCYTES % (AUTO) 10.9 % (2-12); NEUTROPHILS # (AUTO) 3.6 X10'3 (1.8-7.7); NEUTROPHILS % (AUTO) 62.5 % (42-75); PLATELET COUNT 220 X10'3 (140-440); RED BLOOD COUNT 3.13 X10'6 (4.70-6.10); RED CELL DISTRIBUTION WIDTH 13.5 % (11.5-14.5); WHITE BLOOD COUNT 5.8 X10'3 (4.5-11.0)
[2019-10-02 04:03] LABS: ALANINE AMINOTRANSFERASE 26 U/L (12-78); ALBUMIN 2.3 G/DL (3.4-5.0); ALBUMIN/GLOBULIN RATIO 0.6 (1.1-1.5); ALKALINE PHOSPHATASE 69 IU/L (46-116); ANION GAP 12 (8-16); ASPARTATE AMINO TRANSFERASE 16 U/L (10-37); BILIRUBIN,TOTAL 0.8 MG/DL (0.1-1.0); BLOOD UREA NITROGEN 15 MG/DL (7-18); CALCIUM 7.7 MG/DL (8.5-10.1); CHLORIDE 109 MMOL/L (99-107); CREATININE 3.03 MG/DL (0.60-1.10); GLUCOSE 84 MG/DL (70-104); POTASSIUM 3.6 MMOL/L (3.5-5.1); SODIUM 140 MMOL/L (135-145); TOTAL CARBON DIOXIDE 18.7 MMOL/L (24-32); TOTAL PROTEIN 6.1 G/DL (6.4-8.2); eGFR 22 ML/MIN
--- NOTE | 2019-10-02 06:27 | NUR ---
Problems reprioritized. Patient report given, questions answered & plan of care reviewed with Phuong VALENTINO.
[2019-10-02 06:55] VITALS: BP 172/96
[2019-10-02] MEDS: lactobacillus rhamnosus 10,000 MMU CELLS/CAPSULE PO SCH ×2 (07:22→19:13)
[2019-10-02] MEDS: K and/or MAG REPLACEMENT MC SCH (07:25)
[2019-10-02 11:00] VITALS: BP 173/89
[2019-10-02] MEDS ORDERED: hydrALAZINE 20mg/ml inj. IV PRN (11:55)
[2019-10-02 14:08] VITALS: BP 172/100
--- NOTE | 2019-10-02 14:10 | NUR ---
new bp 172/100 1 hr after prn dose of hydralizine. Radha Pierre notified and will review bp meds. I will keep an eye out for new orders
[2019-10-02] MEDS: amLODIPine 5mg tablet PO SCH (14:19)
[2019-10-02] MEDS: sodium bicarbonate (8.4%) inj. 100 MEQ in dextrose 5%-water 1,000 ML IV SCH ×2 (15:03→20:52)
--- NOTE | 2019-10-02 16:15 | NUR ---
Patient in room [facility]. I have received report from SHIRA Beck RN and had the opportunity to ask questions and assume patient care.
--- NOTE | 2019-10-02 16:19 | NUR ---
Alayna RN to take over care of pt, Pt doing well but Bp is still high, she has called Radha Pierre and she is aware and we will continue with scheduled hydralazine. Pt has family in room.
[2019-10-02 18:00] VITALS: BP 148/87
--- NOTE | 2019-10-02 18:14 | NUR ---
Problems reprioritized. Patient report given, questions answered & plan of care reviewed with CHICHO Abrams.
--- NOTE | 2019-10-02 18:23 | NUR ---
Patient in room [facility]. I have received report from Alayna VALENTINO and had the opportunity to ask questions and assume patient care. Patient stated that he is not feeling too well. He has vomited once already and Zofran is given per order.
[2019-10-02] MEDS: ondansetron/PF 4mg/2ml inj IV PRN (18:24)
[2019-10-02] MEDS: NUT.TX.IMP.RENAL FXN,LAC-REDUC (Nepro) 237 ML VANILLA PO SCH (18:33)
[2019-10-02] MEDS: temazepam 15mg capsule PO PRN (20:52)
[2019-10-02] MEDS: acetaminophen 325mg tablet PO PRN (23:08)
[2019-10-03] VITALS: BP 150/74
[2019-10-03] MEDS: hyDRALAzine 10mg tablet PO SCH ×4 (00:07→23:33)
[2019-10-03] MEDS: piperacillin/tazo 3.375gm/50ml 50 ML IV SCH ×4 (00:13→23:33)
[2019-10-03] MEDS: sodium bicarbonate (8.4%) inj. 100 MEQ in dextrose 5%-water 1,000 ML IV SCH (04:20)
[2019-10-03 05:42] LABS: BASOPHILS % (AUTO) 0.4 % (0-1); EOSINOPHILS # (AUTO) 0.3 X10'3 (0-0.9); EOSINOPHILS % (AUTO) 5.6 % (0-6); HEMATOCRIT 28.4 % (42.0-52.0); HEMOGLOBIN 10.1 g/dl (14.0-17.9); LYMPHOCYTES % (AUTO) 17.9 % (21-51); MEAN CORPUSCULAR HGB CONC 35.6 g/dL (33.0-36.5); MEAN CORPUSCULAR VOLUME 86.9 FL (78-98); MEAN PLATELET VOLUME 7.8 FL (7.4-10.4); MONOCYTES # (AUTO) 0.7 X10'3 (0-0.9); MONOCYTES % (AUTO) 12.6 % (2-12); NEUTROPHILS # (AUTO) 3.6 X10'3 (1.8-7.7); NEUTROPHILS % (AUTO) 63.5 % (42-75); PLATELET COUNT 209 X10'3 (140-440); RED BLOOD COUNT 3.26 X10'6 (4.70-6.10); RED CELL DISTRIBUTION WIDTH 13.3 % (11.5-14.5); WHITE BLOOD COUNT 5.7 X10'3 (4.5-11.0)
--- NOTE | 2019-10-03 06:30 | NUR ---
Patient in room [facility]. I have received report from Aliza VALENTINO and had the opportunity to ask questions and assume patient care.
--- NOTE | 2019-10-03 06:37 | NUR ---
Problems reprioritized. Patient report given, questions answered & plan of care reviewed with Moises RN. Patient is resting.
[2019-10-03 06:46] LABS: ALBUMIN 2.3 G/DL (3.4-5.0); ANION GAP 10 (8-16); CHLORIDE 106 MMOL/L (99-107); GLUCOSE 136 MG/DL (70-104); POTASSIUM 3.2 MMOL/L (3.5-5.1); SODIUM 141 MMOL/L (135-145); TOTAL CARBON DIOXIDE 24.7 MMOL/L (24-32)
[2019-10-03 06:54] LABS: BLOOD UREA NITROGEN 14 MG/DL (7-18); BUN/CREATININE RATIO 4.5 (5.4-32.0); CREATININE 3.12 MG/DL (0.60-1.10); eGFR 21 ML/MIN
[2019-10-03 08:00] VITALS: BP 163/93
[2019-10-03] MEDS: NUT.TX.IMP.RENAL FXN,LAC-REDUC (Nepro) 237 ML VANILLA PO SCH ×3 (08:00→18:00)
[2019-10-03] MEDS: K and/or MAG REPLACEMENT MC SCH (08:00)
[2019-10-03] MEDS: lactobacillus rhamnosus 10,000 MMU CELLS/CAPSULE PO SCH ×2 (08:20→20:24)
[2019-10-03] MEDS: amLODIPine 5mg tablet PO SCH ×2 (08:20→20:24)
[2019-10-03] MEDS ORDERED: potassium Cl 20 mEq SR tablet PO STA (09:48)
[2019-10-03] MEDS: normal saline 1000ml 1,000 ML IV SCH ×2 (10:28→23:15)
[2019-10-03] MEDS: ondansetron/PF 4mg/2ml inj IV PRN ×2 (10:35→17:23)
[2019-10-03 11:00] VITALS: BP 161/92
--- NOTE | 2019-10-03 18:33 | NUR ---
Problems reprioritized. Patient report given, questions answered & plan of care reviewed with Riley VALENTINO.
[2019-10-03 18:40] VITALS: BP 157/91
[2019-10-03] MEDS: heparin, porcine 5000 units/ml vial SQ SCH (20:00)
[2019-10-03] MEDS: temazepam 15mg capsule PO PRN (20:24)
[2019-10-04] VITALS: BP 139/85
[2019-10-04 05:17] LABS: BASOPHILS % (AUTO) 0.3 % (0-1); EOSINOPHILS # (AUTO) 0.3 X10'3 (0-0.9); EOSINOPHILS % (AUTO) 6.9 % (0-6); HEMATOCRIT 27.6 % (42.0-52.0); HEMOGLOBIN 9.5 g/dl (14.0-17.9); LYMPHOCYTES # (AUTO) 0.9 X10'3 (1.1-4.8); LYMPHOCYTES % (AUTO) 22.6 % (21-51); MEAN CORPUSCULAR HEMOGLOBIN 30.3 PG (27.0-31.0); MEAN CORPUSCULAR HGB CONC 34.3 g/dL (33.0-36.5); MEAN CORPUSCULAR VOLUME 88.1 FL (78-98); MEAN PLATELET VOLUME 7.7 FL (7.4-10.4); MONOCYTES # (AUTO) 0.5 X10'3 (0-0.9); MONOCYTES % (AUTO) 13.5 % (2-12); NEUTROPHILS # (AUTO) 2.3 X10'3 (1.8-7.7); NEUTROPHILS % (AUTO) 56.7 % (42-75); PLATELET COUNT 200 X10'3 (140-440); RED BLOOD COUNT 3.13 X10'6 (4.70-6.10); RED CELL DISTRIBUTION WIDTH 13.5 % (11.5-14.5)
[2019-10-04 05:53] LABS: ALBUMIN 2.2 G/DL (3.4-5.0); ANION GAP 9 (8-16); BLOOD UREA NITROGEN 12 MG/DL (7-18); BUN/CREATININE RATIO 3.8 (5.4-32.0); CALCIUM 7.7 MG/DL (8.5-10.1); CHLORIDE 105 MMOL/L (99-107); GLUCOSE 100 MG/DL (70-104); SODIUM 139 MMOL/L (135-145); TOTAL CARBON DIOXIDE 25.3 MMOL/L (24-32); eGFR 21 ML/MIN
--- NOTE | 2019-10-04 06:33 | NUR ---
Patient in room [facility] 347. I have received report from Riley VALENTINO and had the opportunity to ask questions and assume patient care.
--- NOTE | 2019-10-04 06:48 | NUR ---
Problems reprioritized. Patient report given, questions answered & plan of care reviewed with BRIGIDO. Addendum: 10/04/19 at 0648 by Macario Pack RN Amended: Links added.
[2019-10-04 07:00] VITALS: BP 147/85
[2019-10-04] MEDS ORDERED: potassium CL 10mEq/100ml bag 100 ML IV PRN (07:15)
[2019-10-04] MEDS ORDERED: potassium Cl 20 mEq SR tablet PO PRN (07:15)
--- NOTE | 2019-10-04 07:16 | NUR ---
Critical lab K of 3.[address] Lloyd on the phone, K replacement order received
[2019-10-04] MEDS: piperacillin/tazo 3.375gm/50ml 50 ML IV SCH (07:30)
[2019-10-04] MEDS: hyDRALAzine 10mg tablet PO SCH (07:30)
[2019-10-04] MEDS: lactobacillus rhamnosus 10,000 MMU CELLS/CAPSULE PO SCH (07:30)
[2019-10-04] MEDS: amLODIPine 5mg tablet PO SCH (07:30)
[2019-10-04] MEDS: heparin, porcine 5000 units/ml vial SQ SCH (07:32)
[2019-10-04] MEDS: potassium Cl 20 mEq SR tablet PO PRN ×2 (07:34→12:51)
[2019-10-04] MEDS: K and/or MAG REPLACEMENT MC SCH (08:00)
[2019-10-04] MEDS ORDERED: CefTRIAXone 2gm/D5W 50ml 50 ML IV SCH (10:15)
[2019-10-04] MEDS ORDERED: ONDA4TAB6 PO (12:12)
[2019-10-04] MEDS: NUT.TX.IMP.RENAL FXN,LAC-REDUC (Nepro) 237 ML VANILLA PO SCH (12:52)
[2019-10-04] MEDS: ondansetron/PF 4mg/2ml inj IV PRN (12:54)
[2019-10-04] MEDS ORDERED: metroNIDAZOLE 500mg tablet PO SCH (13:00)
--- NOTE | 2019-10-04 13:39 | NUR ---
Wound care nurse at bedside doing dressing change for wound vac. She will also switch the current wound vac into patient's own wound vac brought from home
[2019-10-04] MEDS ORDERED: AMLO5TAB4 PO (14:25)
--- NOTE | 2019-10-04 14:40 | NUR ---
Discharged patient home, discharge instructions given to patient. Patient verbalized understanding of all instructions made. Patient has a new PICC line placed today by PICC line nurse. Peripheral IV catheter removed, tip intact. Patient given written teaching about PICC line and Diabetes Survival skills. A1C level discussed with patient. Patient advised to contact his PCP for follow up appointment preferably within 1 week and to follow up with Dr. Reveles as scheduled. Home infusion has been arranged already by NOLAN Smith, patient stated he would have to stop by at [facility] pharmacy for his prescriptions and that they will teach him about IV administration. Patient was accompanied by a family member. Patient expressed concern about taking his Lisinopril because it was previously held due to altered kidney function. Dr. Lloyd notified about this, received order to d/c Lisinopril and add Norvasc 5mg PO daily as part of new prescription. New prescription for PO Zofran and Norvasc were transmitted electronically to preferred pharmacy.
[2019-10-05] MEDS ORDERED: CefTRIAXone 2gm/D5W 50ml 50 ML IV SCH (08:00)
== END 2019-10-04 14:40 | disposition home IV services (08) | DRG 623 ==
LOC: SUR 3N 11:23
PROVIDERS: ADMIT Internal Medicine; ATTEND Family Medicine
PROC: BQ3 Imaging, Non-Axial Lower Bones, Magnetic Resonance Imaging (MRI) (ICD-10-PCS; 2019-09-24)
PROC: 0JBQ0ZZ Excision of Right Foot Subcutaneous Tissue and Fascia, Open Approach (ICD-10-PCS; principal; 2019-09-29)
PROC: 0JBQ0ZZ Excision of Right Foot Subcutaneous Tissue and Fascia, Open Approach (ICD-10-PCS; 2019-10-01)
PROC: 02HV33Z Insertion of Infusion Device into Superior Vena Cava, Percutaneous Approach (ICD-10-PCS; 2019-10-04)
PROC: B548ZZA Ultrasonography of Superior Vena Cava, Guidance (ICD-10-PCS; 2019-10-04)
DX: E11.69 Type 2 diabetes mellitus with other specified complication (principal); L97.419 Non-pressure chronic ulcer of right heel and midfoot with unspecified severity; M86.171 Other acute osteomyelitis, right ankle and foot; L03.115 Cellulitis of right lower limb; E11.40 Type 2 diabetes mellitus with diabetic neuropathy, unspecified; B95.61 Methicillin susceptible Staphylococcus aureus infection as the cause of diseases classified elsewhere; M60.871 Other myositis, right ankle and foot; N17.9 Acute kidney failure, unspecified; D64.9 Anemia, unspecified; E11.621 Type 2 diabetes mellitus with foot ulcer; E11.628 Type 2 diabetes mellitus with other skin complications; I10 Essential (primary) hypertension; Z79.84 Long term (current) use of oral hypoglycemic drugs; Z79.899 Other long term (current) drug therapy; E87.6 Hypokalemia; T36.8X5A Adverse effect of other systemic antibiotics, initial encounter; Y92.238 Other place in hospital as the place of occurrence of the external cause
CPT/HCPCS: 36415; 36569; 73723; 76775; 76937; 80048; 80053; 80202; 81003; 82948; 83036; 83615; 83735; 84155; 84165; 85025; 85651; 86160; 86256; 87081; A9585; G0378; J0360; J0696; J1644; J2405; J2543; J2930; J3370; J3490; J7030; J7050

== ENCOUNTER 2019-10-07 08:10 | Day surgery (SDC) | payer BC ==
[~2019-10-07 08:10] MED LIST changes: +AMLO5TAB4 PO; -LISI-600 PO; +ONDA4TAB6 PO
[2019-10-07] MEDS ORDERED: LIDOcaine 2% 5ml jelly ONE (09:35)
== END 2019-10-07 11:05 | disposition home or self-care (01) ==
LOC: WOUND CARE 08:10
PROVIDERS: ATTEND Surgery
DX: E11.621 Type 2 diabetes mellitus with foot ulcer (principal); L97.513 Non-pressure chronic ulcer of other part of right foot with necrosis of muscle; E11.42 Type 2 diabetes mellitus with diabetic polyneuropathy; E11.65 Type 2 diabetes mellitus with hyperglycemia; I10 Essential (primary) hypertension; E11.69 Type 2 diabetes mellitus with other specified complication; M86.8X7 Other osteomyelitis, ankle and foot; Z72.89 Other problems related to lifestyle; Z79.84 Long term (current) use of oral hypoglycemic drugs; Z79.899 Other long term (current) drug therapy
CPT/HCPCS: 36416; 82948; 97605; A4663; A6021; A6154; A6446

== ENCOUNTER 2019-10-11 08:15 | Day surgery (SDC) | payer BC ==
[2019-10-11] MEDS ORDERED: LIDOcaine/PRILOcaine 5gm cream TP ONE (09:04)
== END 2019-10-11 10:46 | disposition home or self-care (01) ==
LOC: WOUND CARE 08:15
PROVIDERS: ATTEND Surgery
DX: E11.621 Type 2 diabetes mellitus with foot ulcer (principal); L97.513 Non-pressure chronic ulcer of other part of right foot with necrosis of muscle; E11.42 Type 2 diabetes mellitus with diabetic polyneuropathy; E11.65 Type 2 diabetes mellitus with hyperglycemia; I10 Essential (primary) hypertension; E11.69 Type 2 diabetes mellitus with other specified complication; M86.8X7 Other osteomyelitis, ankle and foot; Z72.89 Other problems related to lifestyle; Z79.84 Long term (current) use of oral hypoglycemic drugs; Z79.899 Other long term (current) drug therapy
CPT/HCPCS: 36416; 82948; 97605; A4456; A4663; A6021

== ENCOUNTER 2019-10-14 08:10 | Day surgery (SDC) | payer BC ==
[2019-10-14] MEDS ORDERED: LIDOcaine/PRILOcaine 5gm cream TP ONE (09:13)
== END 2019-10-14 10:50 | disposition home or self-care (01) ==
LOC: WOUND CARE 08:10
PROVIDERS: ATTEND Surgery
DX: E11.621 Type 2 diabetes mellitus with foot ulcer (principal); L97.513 Non-pressure chronic ulcer of other part of right foot with necrosis of muscle; E11.42 Type 2 diabetes mellitus with diabetic polyneuropathy; E11.65 Type 2 diabetes mellitus with hyperglycemia; I10 Essential (primary) hypertension; E11.69 Type 2 diabetes mellitus with other specified complication; M86.8X7 Other osteomyelitis, ankle and foot; Z72.89 Other problems related to lifestyle; Z79.84 Long term (current) use of oral hypoglycemic drugs; Z79.899 Other long term (current) drug therapy
CPT/HCPCS: 36416; 82948; 97605; A4456; A4663; A6021; A6446

== ENCOUNTER 2019-10-18 08:05 | Day surgery (SDC) | payer BC ==
[2019-10-18] MEDS ORDERED: LIDOcaine 2% 5ml jelly ONE (09:06)
== END 2019-10-18 11:15 | disposition home or self-care (01) ==
LOC: WOUND CARE 08:05
PROVIDERS: ATTEND Surgery
DX: E11.621 Type 2 diabetes mellitus with foot ulcer (principal); L97.513 Non-pressure chronic ulcer of other part of right foot with necrosis of muscle; E11.42 Type 2 diabetes mellitus with diabetic polyneuropathy; E11.65 Type 2 diabetes mellitus with hyperglycemia; I10 Essential (primary) hypertension; E11.69 Type 2 diabetes mellitus with other specified complication; M86.8X7 Other osteomyelitis, ankle and foot; Z72.89 Other problems related to lifestyle; Z79.84 Long term (current) use of oral hypoglycemic drugs; Z79.899 Other long term (current) drug therapy
CPT/HCPCS: 15275; 36416; 82948; A6209; A6222; Q4106; 15276; A4663; A6250

== ENCOUNTER 2019-10-21 08:12 | Outpatient (CLI) | payer BC | END 2019-10-21 10:34 | disposition home or self-care (01) | LOC: WOUND CARE 08:12 → EDSTATUS 08:30 → WOUND CARE 10:34 | PROVIDERS: ATTEND Surgery | DX: E11.621 Type 2 diabetes mellitus with foot ulcer (principal); L97.513 Non-pressure chronic ulcer of other part of right foot with necrosis of muscle; E11.42 Type 2 diabetes mellitus with diabetic polyneuropathy; E11.65 Type 2 diabetes mellitus with hyperglycemia; I10 Essential (primary) hypertension; E11.69 Type 2 diabetes mellitus with other specified complication; M86.8X7 Other osteomyelitis, ankle and foot; Z79.84 Long term (current) use of oral hypoglycemic drugs; Z79.899 Other long term (current) drug therapy | CPT/HCPCS: 36416; 82948; 97605; A4663; A6446 ==

== ENCOUNTER 2019-10-25 08:10 | Day surgery (SDC) | payer BC ==
[2019-10-25] MEDS ORDERED: LIDOcaine 2% 5ml jelly ONE (09:23)
== END 2019-10-25 11:06 | disposition home or self-care (01) ==
LOC: WOUND CARE 08:10
PROVIDERS: ATTEND Surgery
DX: E11.621 Type 2 diabetes mellitus with foot ulcer (principal); L97.513 Non-pressure chronic ulcer of other part of right foot with necrosis of muscle; E11.42 Type 2 diabetes mellitus with diabetic polyneuropathy; E11.65 Type 2 diabetes mellitus with hyperglycemia; I10 Essential (primary) hypertension; E11.69 Type 2 diabetes mellitus with other specified complication; M86.8X7 Other osteomyelitis, ankle and foot; Z79.84 Long term (current) use of oral hypoglycemic drugs; Z79.899 Other long term (current) drug therapy
CPT/HCPCS: 36416; 82948; 97597; A4456; A4663; A6021; A6154

== ENCOUNTER 2019-10-27 08:20 | Day surgery (SDC) | payer BC ==
[2019-10-27] MEDS ORDERED: LIDOcaine 2% 5ml jelly ONE (09:12)
== END 2019-10-27 10:46 | disposition home or self-care (01) ==
LOC: WOUND CARE 08:20
PROVIDERS: ATTEND Surgery
DX: E11.621 Type 2 diabetes mellitus with foot ulcer (principal); L97.513 Non-pressure chronic ulcer of other part of right foot with necrosis of muscle; E11.42 Type 2 diabetes mellitus with diabetic polyneuropathy; E11.65 Type 2 diabetes mellitus with hyperglycemia; I10 Essential (primary) hypertension; E11.69 Type 2 diabetes mellitus with other specified complication; M86.8X7 Other osteomyelitis, ankle and foot; Z79.84 Long term (current) use of oral hypoglycemic drugs; Z79.899 Other long term (current) drug therapy
CPT/HCPCS: 15275; 36416; 82948; A6222; Q4106; A4456; A4663; A6250

== ENCOUNTER 2019-11-01 08:05 | Outpatient (CLI) | payer BC | END 2019-11-01 09:52 | disposition home or self-care (01) | LOC: WOUND CARE 08:05 | PROVIDERS: ATTEND Surgery | DX: E11.621 Type 2 diabetes mellitus with foot ulcer (principal); L97.513 Non-pressure chronic ulcer of other part of right foot with necrosis of muscle; E11.42 Type 2 diabetes mellitus with diabetic polyneuropathy; E11.65 Type 2 diabetes mellitus with hyperglycemia; I10 Essential (primary) hypertension; E11.69 Type 2 diabetes mellitus with other specified complication; M86.8X7 Other osteomyelitis, ankle and foot; Z79.84 Long term (current) use of oral hypoglycemic drugs; Z79.899 Other long term (current) drug therapy | CPT/HCPCS: 82948; 97605; A4456; A4663; A6250 ==

== ENCOUNTER 2019-11-04 08:15 | Day surgery (SDC) | payer BC ==
[2019-11-04] MEDS ORDERED: LIDOcaine 2% 5ml jelly ONE ×2 (09:07→09:15)
== END 2019-11-04 11:02 | disposition home or self-care (01) ==
LOC: WOUND CARE 08:15
PROVIDERS: ATTEND Surgery
DX: E11.621 Type 2 diabetes mellitus with foot ulcer (principal); L97.513 Non-pressure chronic ulcer of other part of right foot with necrosis of muscle; E11.42 Type 2 diabetes mellitus with diabetic polyneuropathy; E11.65 Type 2 diabetes mellitus with hyperglycemia; I10 Essential (primary) hypertension; E11.69 Type 2 diabetes mellitus with other specified complication; M86.8X7 Other osteomyelitis, ankle and foot; Z79.84 Long term (current) use of oral hypoglycemic drugs; Z79.899 Other long term (current) drug therapy
CPT/HCPCS: 36416; 82948; 97597; A6222; A4663; A6446

== ENCOUNTER 2019-11-08 08:40 | Day surgery (SDC) | payer BC ==
[2019-11-08] MEDS ORDERED: LIDOcaine/PRILOcaine 5gm cream TP ONE (09:47)
== END 2019-11-08 12:02 | disposition home or self-care (01) ==
LOC: WOUND CARE 08:40
PROVIDERS: ATTEND Surgery
DX: E11.621 Type 2 diabetes mellitus with foot ulcer (principal); L97.513 Non-pressure chronic ulcer of other part of right foot with necrosis of muscle; E11.42 Type 2 diabetes mellitus with diabetic polyneuropathy; E11.65 Type 2 diabetes mellitus with hyperglycemia; E11.69 Type 2 diabetes mellitus with other specified complication; M86.8X7 Other osteomyelitis, ankle and foot; I10 Essential (primary) hypertension; Z79.84 Long term (current) use of oral hypoglycemic drugs; Z79.899 Other long term (current) drug therapy
CPT/HCPCS: 15275; 36416; 82948; A6222; Q4106; A4456; A4663; A6250

== ENCOUNTER 2019-11-11 08:05 | Outpatient (CLI) | payer BC | END 2019-11-11 09:35 | disposition home or self-care (01) | LOC: WOUND CARE 08:05 → EDSTATUS 08:30 → WOUND CARE 09:35 | PROVIDERS: ATTEND Surgery | DX: E11.621 Type 2 diabetes mellitus with foot ulcer (principal); L97.513 Non-pressure chronic ulcer of other part of right foot with necrosis of muscle; E11.42 Type 2 diabetes mellitus with diabetic polyneuropathy; E11.65 Type 2 diabetes mellitus with hyperglycemia; E11.69 Type 2 diabetes mellitus with other specified complication; M86.8X7 Other osteomyelitis, ankle and foot; I10 Essential (primary) hypertension; Z79.84 Long term (current) use of oral hypoglycemic drugs; Z79.899 Other long term (current) drug therapy | CPT/HCPCS: 36416; 82948; 97605; A4663; A6446 ==

== ENCOUNTER 2019-11-15 08:00 | Day surgery (SDC) | payer BC ==
[2019-11-15] MEDS ORDERED: LIDOcaine 2% 5ml jelly ONE (09:17)
== END 2019-11-15 11:09 | disposition home or self-care (01) ==
LOC: WOUND CARE 08:00
PROVIDERS: ATTEND Surgery
DX: E11.621 Type 2 diabetes mellitus with foot ulcer (principal); L97.513 Non-pressure chronic ulcer of other part of right foot with necrosis of muscle; E11.42 Type 2 diabetes mellitus with diabetic polyneuropathy; E11.65 Type 2 diabetes mellitus with hyperglycemia; E11.69 Type 2 diabetes mellitus with other specified complication; M86.8X7 Other osteomyelitis, ankle and foot; I10 Essential (primary) hypertension; Z79.84 Long term (current) use of oral hypoglycemic drugs; Z79.899 Other long term (current) drug therapy
CPT/HCPCS: 15275; 36416; 82948; A6209; A6222; Q4106; 15271; A4663; A6250; A6446

== ENCOUNTER 2019-11-22 08:10 | Day surgery (SDC) | payer BC ==
[2019-11-22] MEDS ORDERED: LIDOcaine 2% 5ml jelly ONE (09:16)
== END 2019-11-22 11:32 | disposition home or self-care (01) ==
LOC: WOUND CARE 08:10
PROVIDERS: ATTEND Surgery
DX: E11.621 Type 2 diabetes mellitus with foot ulcer (principal); L97.513 Non-pressure chronic ulcer of other part of right foot with necrosis of muscle; E11.42 Type 2 diabetes mellitus with diabetic polyneuropathy; E11.65 Type 2 diabetes mellitus with hyperglycemia; E11.69 Type 2 diabetes mellitus with other specified complication; M86.8X7 Other osteomyelitis, ankle and foot; I10 Essential (primary) hypertension; Z79.84 Long term (current) use of oral hypoglycemic drugs; Z79.899 Other long term (current) drug therapy
CPT/HCPCS: 15275; 36416; 82948; A6209; A6222; Q4106; A4663; A6446

== ENCOUNTER 2019-11-30 08:00 | Day surgery (SDC) | payer BC ==
[2019-11-30] MEDS ORDERED: LIDOcaine 2% 5ml jelly ONE (09:15)
== END 2019-11-30 10:41 | disposition home or self-care (01) ==
LOC: WOUND CARE 08:00
PROVIDERS: ATTEND Nurse Practitioner Family
DX: E11.621 Type 2 diabetes mellitus with foot ulcer (principal); L97.513 Non-pressure chronic ulcer of other part of right foot with necrosis of muscle; E11.42 Type 2 diabetes mellitus with diabetic polyneuropathy; E11.65 Type 2 diabetes mellitus with hyperglycemia; E11.69 Type 2 diabetes mellitus with other specified complication; M86.8X7 Other osteomyelitis, ankle and foot; I10 Essential (primary) hypertension; Z79.84 Long term (current) use of oral hypoglycemic drugs; Z79.899 Other long term (current) drug therapy
CPT/HCPCS: 36416; 82948; 97597; A4663; A6154; A6446

== ENCOUNTER 2019-12-02 08:00 | Outpatient (CLI) | payer BC | END 2019-12-02 09:40 | disposition home or self-care (01) | LOC: WOUND CARE 08:00 → EDSTATUS 08:30 → WOUND CARE 09:40 | PROVIDERS: ATTEND Nurse Practitioner Family | DX: E11.621 Type 2 diabetes mellitus with foot ulcer (principal); L97.513 Non-pressure chronic ulcer of other part of right foot with necrosis of muscle; E11.42 Type 2 diabetes mellitus with diabetic polyneuropathy; E11.65 Type 2 diabetes mellitus with hyperglycemia; E11.69 Type 2 diabetes mellitus with other specified complication; M86.8X7 Other osteomyelitis, ankle and foot; I10 Essential (primary) hypertension; Z79.84 Long term (current) use of oral hypoglycemic drugs; Z79.899 Other long term (current) drug therapy | CPT/HCPCS: 36416; 82948; 97605; A6222; A4663; A6021; A6446 ==

== ENCOUNTER 2019-12-06 08:05 | Day surgery (SDC) | payer BC ==
[2019-12-06] MEDS ORDERED: LIDOcaine 2% 5ml jelly ONE (09:36)
== END 2019-12-06 11:34 | disposition home or self-care (01) ==
LOC: WOUND CARE 08:05
PROVIDERS: ATTEND Surgery
DX: E11.621 Type 2 diabetes mellitus with foot ulcer (principal); L97.513 Non-pressure chronic ulcer of other part of right foot with necrosis of muscle; E11.42 Type 2 diabetes mellitus with diabetic polyneuropathy; E11.65 Type 2 diabetes mellitus with hyperglycemia; E11.69 Type 2 diabetes mellitus with other specified complication; M86.8X7 Other osteomyelitis, ankle and foot; I10 Essential (primary) hypertension; Z79.84 Long term (current) use of oral hypoglycemic drugs; Z79.899 Other long term (current) drug therapy
CPT/HCPCS: 36416; 82948; 97605; A4456; A4663

== ENCOUNTER 2019-12-09 08:15 | Day surgery (SDC) | payer BC ==
[2019-12-09] MEDS ORDERED: LIDOcaine/PRILOcaine 5gm cream TP ONE (08:59)
== END 2019-12-09 10:52 | disposition home or self-care (01) ==
LOC: WOUND CARE 08:15
PROVIDERS: ATTEND Surgery
DX: E11.621 Type 2 diabetes mellitus with foot ulcer (principal); L97.513 Non-pressure chronic ulcer of other part of right foot with necrosis of muscle; E11.65 Type 2 diabetes mellitus with hyperglycemia; E11.42 Type 2 diabetes mellitus with diabetic polyneuropathy; E11.69 Type 2 diabetes mellitus with other specified complication; M86.8X7 Other osteomyelitis, ankle and foot; I10 Essential (primary) hypertension; Z79.84 Long term (current) use of oral hypoglycemic drugs; Z79.899 Other long term (current) drug therapy
CPT/HCPCS: 36416; 82948; 97597; A4456; A4663

== ENCOUNTER 2019-12-13 08:00 | Day surgery (SDC) | payer BC ==
[2019-12-13] MEDS ORDERED: LIDOcaine 2% 5ml jelly ONE (09:36)
== END 2019-12-13 11:08 | disposition home or self-care (01) ==
LOC: WOUND CARE 08:00
PROVIDERS: ATTEND Surgery
DX: E11.621 Type 2 diabetes mellitus with foot ulcer (principal); L97.513 Non-pressure chronic ulcer of other part of right foot with necrosis of muscle; E11.65 Type 2 diabetes mellitus with hyperglycemia; E11.69 Type 2 diabetes mellitus with other specified complication; M86.8X7 Other osteomyelitis, ankle and foot; E11.42 Type 2 diabetes mellitus with diabetic polyneuropathy; I10 Essential (primary) hypertension; Z79.899 Other long term (current) drug therapy; Z79.84 Long term (current) use of oral hypoglycemic drugs
CPT/HCPCS: 15275; 36416; 82948; A6222; Q4106; A4456; A4663; A6250; A6446

== ENCOUNTER 2019-12-20 08:05 | Day surgery (SDC) | payer BC ==
[2019-12-20] MEDS ORDERED: LIDOcaine 2% 5ml jelly ONE (09:55)
== END 2019-12-20 10:55 | disposition home or self-care (01) ==
LOC: WOUND CARE 08:05
PROVIDERS: ATTEND Surgery
DX: E11.621 Type 2 diabetes mellitus with foot ulcer (principal); L97.513 Non-pressure chronic ulcer of other part of right foot with necrosis of muscle; E11.65 Type 2 diabetes mellitus with hyperglycemia; E11.42 Type 2 diabetes mellitus with diabetic polyneuropathy; E11.69 Type 2 diabetes mellitus with other specified complication; M86.8X7 Other osteomyelitis, ankle and foot; I10 Essential (primary) hypertension; Z79.84 Long term (current) use of oral hypoglycemic drugs; Z79.899 Other long term (current) drug therapy
CPT/HCPCS: 36416; 82948; G0463; A4663; A6021; A6446

== ENCOUNTER 2019-12-27 08:10 | Day surgery (SDC) | payer BC ==
[2019-12-27] MEDS ORDERED: LIDOcaine 2% 5ml jelly ONE (09:00)
== END 2019-12-27 11:10 | disposition home or self-care (01) ==
LOC: WOUND CARE 08:10
PROVIDERS: ATTEND Surgery
DX: E11.621 Type 2 diabetes mellitus with foot ulcer (principal); L97.513 Non-pressure chronic ulcer of other part of right foot with necrosis of muscle; E11.65 Type 2 diabetes mellitus with hyperglycemia; E11.42 Type 2 diabetes mellitus with diabetic polyneuropathy; E11.69 Type 2 diabetes mellitus with other specified complication; M86.8X7 Other osteomyelitis, ankle and foot; I10 Essential (primary) hypertension; Z79.84 Long term (current) use of oral hypoglycemic drugs; Z79.899 Other long term (current) drug therapy
CPT/HCPCS: 15275; A6209; Q4106; A4663; A6154; A6250; A6446

== ENCOUNTER 2020-01-03 08:05 | Day surgery (SDC) | payer BC ==
[2020-01-03] MEDS ORDERED: LIDOcaine 2% 5ml jelly ONE (09:37)
== END 2020-01-03 10:25 | disposition home or self-care (01) ==
LOC: WOUND CARE 08:05
PROVIDERS: ATTEND Surgery
DX: E11.621 Type 2 diabetes mellitus with foot ulcer (principal); L97.513 Non-pressure chronic ulcer of other part of right foot with necrosis of muscle; E11.65 Type 2 diabetes mellitus with hyperglycemia; E11.42 Type 2 diabetes mellitus with diabetic polyneuropathy; E11.69 Type 2 diabetes mellitus with other specified complication; M86.8X7 Other osteomyelitis, ankle and foot; I10 Essential (primary) hypertension; Z79.84 Long term (current) use of oral hypoglycemic drugs; Z79.899 Other long term (current) drug therapy
CPT/HCPCS: 36416; 82948; G0283; G0463

== ENCOUNTER 2020-01-10 08:05 | Day surgery (SDC) | payer BC | END 2020-01-10 10:58 | disposition home or self-care (01) | LOC: WOUND CARE 08:05 | PROVIDERS: ATTEND Surgery | DX: E11.621 Type 2 diabetes mellitus with foot ulcer (principal); L97.513 Non-pressure chronic ulcer of other part of right foot with necrosis of muscle; E11.65 Type 2 diabetes mellitus with hyperglycemia; E11.42 Type 2 diabetes mellitus with diabetic polyneuropathy; E11.69 Type 2 diabetes mellitus with other specified complication; M86.8X7 Other osteomyelitis, ankle and foot; I10 Essential (primary) hypertension; Z79.84 Long term (current) use of oral hypoglycemic drugs; Z79.899 Other long term (current) drug therapy | CPT/HCPCS: 15275; 36416; 82948; Q4106 ==

== ENCOUNTER 2020-01-24 08:10 | Day surgery (SDC) | payer BC ==
[2020-01-24] MEDS ORDERED: LIDOcaine 2% 5ml jelly ONE (09:41)
== END 2020-01-24 10:54 | disposition home or self-care (01) ==
LOC: WOUND CARE 08:10
PROVIDERS: ATTEND Surgery
DX: E11.621 Type 2 diabetes mellitus with foot ulcer (principal); L97.513 Non-pressure chronic ulcer of other part of right foot with necrosis of muscle; E11.65 Type 2 diabetes mellitus with hyperglycemia; E11.42 Type 2 diabetes mellitus with diabetic polyneuropathy; E11.69 Type 2 diabetes mellitus with other specified complication; M86.8X7 Other osteomyelitis, ankle and foot; I10 Essential (primary) hypertension; Z79.84 Long term (current) use of oral hypoglycemic drugs; Z79.899 Other long term (current) drug therapy
CPT/HCPCS: 36416; 82948; 97597

== ENCOUNTER 2020-01-31 08:10 | Day surgery (SDC) | payer BC ==
[2020-01-31] MEDS ORDERED: LIDOcaine/PRILOcaine 5gm cream TP ONE (09:03)
== END 2020-01-31 10:20 | disposition home or self-care (01) ==
LOC: WOUND CARE 08:10
PROVIDERS: ATTEND Surgery
DX: E11.621 Type 2 diabetes mellitus with foot ulcer (principal); L97.513 Non-pressure chronic ulcer of other part of right foot with necrosis of muscle; E11.65 Type 2 diabetes mellitus with hyperglycemia; E11.42 Type 2 diabetes mellitus with diabetic polyneuropathy; E11.69 Type 2 diabetes mellitus with other specified complication; M86.8X7 Other osteomyelitis, ankle and foot; I10 Essential (primary) hypertension; Z79.84 Long term (current) use of oral hypoglycemic drugs; Z79.899 Other long term (current) drug therapy
CPT/HCPCS: 15275; 36416; 82948; A6209; Q4186; A6154; A6207; A6250; A6446

== ENCOUNTER 2020-02-07 08:05 | Outpatient (CLI) | payer BC ==
[2020-02-07] MEDS ORDERED: LIDOcaine/PRILOcaine 5gm cream TP ONE (08:52)
== END 2020-02-07 10:40 | disposition home or self-care (01) ==
LOC: WOUND CARE 08:05 → EDSTATUS 08:30 → WOUND CARE 10:40
PROVIDERS: ATTEND Surgery
DX: E11.621 Type 2 diabetes mellitus with foot ulcer (principal); L97.513 Non-pressure chronic ulcer of other part of right foot with necrosis of muscle; E11.65 Type 2 diabetes mellitus with hyperglycemia; E11.42 Type 2 diabetes mellitus with diabetic polyneuropathy; E11.69 Type 2 diabetes mellitus with other specified complication; M86.8X7 Other osteomyelitis, ankle and foot; I10 Essential (primary) hypertension; Z79.84 Long term (current) use of oral hypoglycemic drugs; Z79.899 Other long term (current) drug therapy
CPT/HCPCS: 36416; 82948; G0463; A4663; A6021; A6154; A6207; A6446

== ENCOUNTER 2020-02-14 08:05 | Day surgery (SDC) | payer BC ==
[2020-02-14] MEDS ORDERED: LIDOcaine 2% 5ml jelly ONE (09:31)
== END 2020-02-14 10:52 | disposition home or self-care (01) ==
LOC: WOUND CARE 08:05
PROVIDERS: ATTEND Surgery
DX: E11.621 Type 2 diabetes mellitus with foot ulcer (principal); L97.513 Non-pressure chronic ulcer of other part of right foot with necrosis of muscle; E11.65 Type 2 diabetes mellitus with hyperglycemia; E11.42 Type 2 diabetes mellitus with diabetic polyneuropathy; E11.69 Type 2 diabetes mellitus with other specified complication; M86.8X7 Other osteomyelitis, ankle and foot; I10 Essential (primary) hypertension; Z79.84 Long term (current) use of oral hypoglycemic drugs; Z79.899 Other long term (current) drug therapy
CPT/HCPCS: 15275; 36416; 82948; A6209; Q4186; A4663; A6154; A6446

== ENCOUNTER 2020-02-21 08:25 | Day surgery (SDC) | payer BC ==
[2020-02-21] MEDS ORDERED: LIDOcaine 2% 5ml jelly ONE (09:11)
== END 2020-02-21 09:47 | disposition home or self-care (01) ==
LOC: WOUND CARE 08:25
PROVIDERS: ATTEND Surgery
DX: E11.621 Type 2 diabetes mellitus with foot ulcer (principal); L97.513 Non-pressure chronic ulcer of other part of right foot with necrosis of muscle; E11.65 Type 2 diabetes mellitus with hyperglycemia; E11.42 Type 2 diabetes mellitus with diabetic polyneuropathy; E11.69 Type 2 diabetes mellitus with other specified complication; M86.8X7 Other osteomyelitis, ankle and foot; I10 Essential (primary) hypertension; Z79.84 Long term (current) use of oral hypoglycemic drugs; Z79.899 Other long term (current) drug therapy
CPT/HCPCS: 36416; 82948; 97597

== ENCOUNTER 2020-02-28 08:30 | Day surgery (SDC) | payer BC ==
[2020-02-28] MEDS ORDERED: LIDOcaine 2% 5ml jelly ONE (08:49)
== END 2020-02-28 09:45 | disposition home or self-care (01) ==
LOC: WOUND CARE 08:30
PROVIDERS: ATTEND Emergency Medicine
DX: E11.621 Type 2 diabetes mellitus with foot ulcer (principal); L97.513 Non-pressure chronic ulcer of other part of right foot with necrosis of muscle; E11.65 Type 2 diabetes mellitus with hyperglycemia; E11.42 Type 2 diabetes mellitus with diabetic polyneuropathy; E11.69 Type 2 diabetes mellitus with other specified complication; M86.8X7 Other osteomyelitis, ankle and foot; I10 Essential (primary) hypertension; Z79.84 Long term (current) use of oral hypoglycemic drugs; Z79.899 Other long term (current) drug therapy
CPT/HCPCS: 36416; 82948; 97597

== ENCOUNTER 2020-03-06 08:20 | Day surgery (SDC) | payer BC ==
[2020-03-06] MEDS ORDERED: LIDOcaine 2% 5ml jelly ONE (08:34)
== END 2020-03-06 09:15 | disposition home or self-care (01) ==
LOC: WOUND CARE 08:20
PROVIDERS: ATTEND Nurse Practitioner
DX: E11.621 Type 2 diabetes mellitus with foot ulcer (principal); L97.513 Non-pressure chronic ulcer of other part of right foot with necrosis of muscle; E11.65 Type 2 diabetes mellitus with hyperglycemia; E11.42 Type 2 diabetes mellitus with diabetic polyneuropathy; E11.69 Type 2 diabetes mellitus with other specified complication; M86.8X7 Other osteomyelitis, ankle and foot; I10 Essential (primary) hypertension; Z79.84 Long term (current) use of oral hypoglycemic drugs; Z79.899 Other long term (current) drug therapy
CPT/HCPCS: 15275; 36416; 82948; Q4186

== ENCOUNTER 2020-03-13 08:24 | Outpatient (CLI) | payer BC | END 2020-03-13 08:51 | disposition home or self-care (01) | LOC: WOUND CARE 08:24 | PROVIDERS: ATTEND Nurse Practitioner | DX: E11.621 Type 2 diabetes mellitus with foot ulcer (principal); L97.513 Non-pressure chronic ulcer of other part of right foot with necrosis of muscle; E11.65 Type 2 diabetes mellitus with hyperglycemia; E11.42 Type 2 diabetes mellitus with diabetic polyneuropathy; E11.69 Type 2 diabetes mellitus with other specified complication; M86.8X7 Other osteomyelitis, ankle and foot; I10 Essential (primary) hypertension; Z79.84 Long term (current) use of oral hypoglycemic drugs; Z79.899 Other long term (current) drug therapy | CPT/HCPCS: 36416; 82948; G0463 ==

== ENCOUNTER 2020-03-17 08:10 | Outpatient (CLI) | payer BC | END 2020-03-17 09:09 | disposition home or self-care (01) | LOC: WOUND CARE 08:10 → EDSTATUS 08:20 → WOUND CARE 09:09 | PROVIDERS: ATTEND Nurse Practitioner | DX: E11.621 Type 2 diabetes mellitus with foot ulcer (principal); L97.513 Non-pressure chronic ulcer of other part of right foot with necrosis of muscle; E11.65 Type 2 diabetes mellitus with hyperglycemia; E11.42 Type 2 diabetes mellitus with diabetic polyneuropathy; E11.69 Type 2 diabetes mellitus with other specified complication; M86.8X7 Other osteomyelitis, ankle and foot; I10 Essential (primary) hypertension; Z79.84 Long term (current) use of oral hypoglycemic drugs; Z79.899 Other long term (current) drug therapy | CPT/HCPCS: 36416; 82948; G0463 ==

== ENCOUNTER 2020-04-17 08:48 | Day surgery (SDC) | payer BC | END 2020-04-17 11:47 | disposition home or self-care (01) | LOC: WOUND CARE 08:48 | PROVIDERS: ATTEND Nurse Practitioner | DX: E11.621 Type 2 diabetes mellitus with foot ulcer (principal); L97.513 Non-pressure chronic ulcer of other part of right foot with necrosis of muscle; E11.65 Type 2 diabetes mellitus with hyperglycemia; E11.42 Type 2 diabetes mellitus with diabetic polyneuropathy; E11.69 Type 2 diabetes mellitus with other specified complication; M86.8X7 Other osteomyelitis, ankle and foot; I10 Essential (primary) hypertension; Z79.84 Long term (current) use of oral hypoglycemic drugs; Z79.899 Other long term (current) drug therapy | CPT/HCPCS: 36416; 82948; 87070; 87075; 87102; 93922; 93970; 97597 ==

== ENCOUNTER 2020-04-19 10:36 | Day surgery (SDC) | payer BC ==
[2020-04-19] MEDS ORDERED: LIDOcaine 2% 5ml jelly ONE (11:01)
== END 2020-04-19 12:30 | disposition home or self-care (01) ==
LOC: WOUND CARE 10:36
PROVIDERS: ATTEND Nurse Practitioner
DX: E11.621 Type 2 diabetes mellitus with foot ulcer (principal); L97.513 Non-pressure chronic ulcer of other part of right foot with necrosis of muscle; E11.65 Type 2 diabetes mellitus with hyperglycemia; E11.42 Type 2 diabetes mellitus with diabetic polyneuropathy; E11.69 Type 2 diabetes mellitus with other specified complication; M86.8X7 Other osteomyelitis, ankle and foot; I10 Essential (primary) hypertension; Z79.84 Long term (current) use of oral hypoglycemic drugs; Z79.899 Other long term (current) drug therapy
CPT/HCPCS: 11042; 36416; 73630; 82948

== ENCOUNTER 2020-04-25 08:23 | Day surgery (SDC) | payer BC ==
[2020-04-25] MEDS ORDERED: LIDOcaine 2% 5ml jelly ONE (08:48)
== END 2020-04-25 09:46 | disposition home or self-care (01) ==
LOC: WOUND CARE 08:23
PROVIDERS: ATTEND Nurse Practitioner Family
DX: E11.621 Type 2 diabetes mellitus with foot ulcer (principal); L97.513 Non-pressure chronic ulcer of other part of right foot with necrosis of muscle; E11.65 Type 2 diabetes mellitus with hyperglycemia; E11.42 Type 2 diabetes mellitus with diabetic polyneuropathy; E11.69 Type 2 diabetes mellitus with other specified complication; M86.8X7 Other osteomyelitis, ankle and foot; I10 Essential (primary) hypertension; Z79.84 Long term (current) use of oral hypoglycemic drugs; Z79.899 Other long term (current) drug therapy
CPT/HCPCS: 36416; 82948; 97597

== ENCOUNTER 2020-05-05 08:20 | Day surgery (SDC) | payer BC ==
[2020-05-05] MEDS ORDERED: LIDOcaine 2% 5ml jelly ONE (08:57)
== END 2020-05-05 10:13 | disposition home or self-care (01) ==
LOC: WOUND CARE 08:20
PROVIDERS: ATTEND Nurse Practitioner
DX: E11.621 Type 2 diabetes mellitus with foot ulcer (principal); L97.513 Non-pressure chronic ulcer of other part of right foot with necrosis of muscle; E11.65 Type 2 diabetes mellitus with hyperglycemia; E11.42 Type 2 diabetes mellitus with diabetic polyneuropathy; E11.69 Type 2 diabetes mellitus with other specified complication; M86.8X7 Other osteomyelitis, ankle and foot; I10 Essential (primary) hypertension; Z79.84 Long term (current) use of oral hypoglycemic drugs; Z79.899 Other long term (current) drug therapy
CPT/HCPCS: 36416; 82948; 97597

== ENCOUNTER 2020-05-11 09:15 | Day surgery (SDC) | payer BC ==
[2020-05-11 10:50] LABS: ALBUMIN 3.9 G/DL (3.4-5.0); ANION GAP 10 (8-16); BLOOD UREA NITROGEN 11 MG/DL (7-18); BUN/CREATININE RATIO 10.4 (5.4-32.0); CHLORIDE 107 MMOL/L (99-107); CREATININE 1.06 MG/DL (0.60-1.10); GLUCOSE 144 MG/DL (70-104); SODIUM 142 MMOL/L (135-145); TOTAL CARBON DIOXIDE 25.5 MMOL/L (24-32); eGFR 74 ML/MIN
[2020-05-11 10:53] LABS: C-REACTIVE PROTEIN < 0.05 MG/DL (0.0-0.5)
== END 2020-05-11 10:40 | disposition home or self-care (01) ==
LOC: WOUND CARE 09:15
PROVIDERS: ATTEND Nurse Practitioner
DX: E11.621 Type 2 diabetes mellitus with foot ulcer (principal); L97.513 Non-pressure chronic ulcer of other part of right foot with necrosis of muscle; E11.65 Type 2 diabetes mellitus with hyperglycemia; E11.42 Type 2 diabetes mellitus with diabetic polyneuropathy; E11.69 Type 2 diabetes mellitus with other specified complication; M86.471 Chronic osteomyelitis with draining sinus, right ankle and foot; I10 Essential (primary) hypertension; Z79.84 Long term (current) use of oral hypoglycemic drugs; Z79.899 Other long term (current) drug therapy
CPT/HCPCS: 36415; 36416; 80048; 82948; 85651; 86140; 97597

== ENCOUNTER 2020-05-31 08:10 | Day surgery (SDC) | payer BC ==
[2020-05-31] MEDS ORDERED: LIDOcaine 2% 5ml jelly ONE (08:38)
== END 2020-05-31 09:29 | disposition home or self-care (01) ==
LOC: WOUND CARE 08:10
PROVIDERS: ATTEND Nurse Practitioner
DX: E11.621 Type 2 diabetes mellitus with foot ulcer (principal); L97.513 Non-pressure chronic ulcer of other part of right foot with necrosis of muscle; E11.65 Type 2 diabetes mellitus with hyperglycemia; E11.42 Type 2 diabetes mellitus with diabetic polyneuropathy; E11.69 Type 2 diabetes mellitus with other specified complication; M86.471 Chronic osteomyelitis with draining sinus, right ankle and foot; I10 Essential (primary) hypertension; Z79.84 Long term (current) use of oral hypoglycemic drugs; Z79.899 Other long term (current) drug therapy
CPT/HCPCS: 36416; 82948; 97597

== ENCOUNTER 2020-06-07 08:30 | Day surgery (SDC) | payer BC ==
[2020-06-07] MEDS ORDERED: LIDOcaine 2% 5ml jelly ONE (08:50)
== END 2020-06-07 09:56 | disposition home or self-care (01) ==
LOC: WOUND CARE 08:30
PROVIDERS: ATTEND Nurse Practitioner
DX: E11.621 Type 2 diabetes mellitus with foot ulcer (principal); L97.513 Non-pressure chronic ulcer of other part of right foot with necrosis of muscle; E11.65 Type 2 diabetes mellitus with hyperglycemia; E11.42 Type 2 diabetes mellitus with diabetic polyneuropathy; E11.69 Type 2 diabetes mellitus with other specified complication; M86.471 Chronic osteomyelitis with draining sinus, right ankle and foot; I10 Essential (primary) hypertension; Z79.84 Long term (current) use of oral hypoglycemic drugs; Z79.899 Other long term (current) drug therapy
CPT/HCPCS: 15275; 36416; 82948; Q4186

== ENCOUNTER 2020-06-14 08:00 | Day surgery (SDC) | payer BC ==
[2020-06-14] MEDS ORDERED: LIDOcaine 2% 5ml jelly ONE (08:43)
== END 2020-06-14 09:10 | disposition home or self-care (01) ==
LOC: WOUND CARE 08:00
PROVIDERS: ATTEND Nurse Practitioner
DX: E11.621 Type 2 diabetes mellitus with foot ulcer (principal); L97.513 Non-pressure chronic ulcer of other part of right foot with necrosis of muscle; E11.65 Type 2 diabetes mellitus with hyperglycemia; E11.42 Type 2 diabetes mellitus with diabetic polyneuropathy; E11.69 Type 2 diabetes mellitus with other specified complication; M86.471 Chronic osteomyelitis with draining sinus, right ankle and foot; I10 Essential (primary) hypertension; Z79.84 Long term (current) use of oral hypoglycemic drugs; Z79.899 Other long term (current) drug therapy
CPT/HCPCS: 36416; 82948; 97597

== ENCOUNTER 2020-06-23 08:13 | Day surgery (SDC) | payer BC ==
[2020-06-23] MEDS ORDERED: LIDOcaine 2% 5ml jelly ONE (08:24)
== END 2020-06-23 10:12 | disposition home or self-care (01) ==
LOC: WOUND CARE 08:13
PROVIDERS: ATTEND Nurse Practitioner
DX: E11.621 Type 2 diabetes mellitus with foot ulcer (principal); L97.513 Non-pressure chronic ulcer of other part of right foot with necrosis of muscle; E11.65 Type 2 diabetes mellitus with hyperglycemia; E11.42 Type 2 diabetes mellitus with diabetic polyneuropathy; E11.69 Type 2 diabetes mellitus with other specified complication; M86.471 Chronic osteomyelitis with draining sinus, right ankle and foot; I10 Essential (primary) hypertension; Z79.84 Long term (current) use of oral hypoglycemic drugs; Z79.899 Other long term (current) drug therapy
CPT/HCPCS: 36416; 82948; 97597

== ENCOUNTER 2020-06-29 08:12 | Day surgery (SDC) | payer BC ==
[2020-06-29] MEDS ORDERED: LIDOcaine 2% 5ml jelly ONE (08:17)
== END 2020-06-29 10:40 | disposition home or self-care (01) ==
LOC: WOUND CARE 08:12
PROVIDERS: ATTEND Nurse Practitioner
DX: E11.621 Type 2 diabetes mellitus with foot ulcer (principal); L97.513 Non-pressure chronic ulcer of other part of right foot with necrosis of muscle; E11.65 Type 2 diabetes mellitus with hyperglycemia; E11.42 Type 2 diabetes mellitus with diabetic polyneuropathy; E11.69 Type 2 diabetes mellitus with other specified complication; M86.471 Chronic osteomyelitis with draining sinus, right ankle and foot; I10 Essential (primary) hypertension; Z79.84 Long term (current) use of oral hypoglycemic drugs; Z79.899 Other long term (current) drug therapy
CPT/HCPCS: 36416; 82948; 97597

== ENCOUNTER 2020-07-24 08:00 | Day surgery (SDC) | payer BC ==
[2020-07-24] MEDS ORDERED: LIDOcaine 2% 5ml jelly ONE (08:26)
== END 2020-07-24 08:50 | disposition home or self-care (01) ==
LOC: WOUND CARE 08:00
PROVIDERS: ATTEND Nurse Practitioner Family
DX: E11.621 Type 2 diabetes mellitus with foot ulcer (principal); L97.513 Non-pressure chronic ulcer of other part of right foot with necrosis of muscle; E11.65 Type 2 diabetes mellitus with hyperglycemia; E11.42 Type 2 diabetes mellitus with diabetic polyneuropathy; E11.69 Type 2 diabetes mellitus with other specified complication; M86.471 Chronic osteomyelitis with draining sinus, right ankle and foot; I10 Essential (primary) hypertension; Z79.84 Long term (current) use of oral hypoglycemic drugs; Z79.899 Other long term (current) drug therapy
CPT/HCPCS: 36416; 82948; 97597

== ENCOUNTER 2020-07-31 08:04 | Day surgery (SDC) | payer BC ==
[2020-07-31] MEDS ORDERED: LIDOcaine 2% 5ml jelly ONE (08:30)
== END 2020-07-31 09:02 | disposition home or self-care (01) ==
LOC: WOUND CARE 08:04
PROVIDERS: ATTEND Nurse Practitioner
DX: E11.621 Type 2 diabetes mellitus with foot ulcer (principal); L97.513 Non-pressure chronic ulcer of other part of right foot with necrosis of muscle; E11.42 Type 2 diabetes mellitus with diabetic polyneuropathy; E11.65 Type 2 diabetes mellitus with hyperglycemia; E11.69 Type 2 diabetes mellitus with other specified complication; M86.471 Chronic osteomyelitis with draining sinus, right ankle and foot; I10 Essential (primary) hypertension; Z79.4 Long term (current) use of insulin
CPT/HCPCS: 36416; 82948; 97597

== ENCOUNTER 2020-08-14 08:00 | Outpatient (CLI) | payer BC | END 2020-08-14 08:30 | disposition home or self-care (01) | LOC: WOUND CARE 08:00 → EDSTATUS 08:00 → WOUND CARE 08:30 | PROVIDERS: ATTEND Nurse Practitioner Family | DX: E11.621 Type 2 diabetes mellitus with foot ulcer (principal); L97.518 Non-pressure chronic ulcer of other part of right foot with other specified severity; E11.42 Type 2 diabetes mellitus with diabetic polyneuropathy; E11.65 Type 2 diabetes mellitus with hyperglycemia; E11.69 Type 2 diabetes mellitus with other specified complication; M86.471 Chronic osteomyelitis with draining sinus, right ankle and foot; I10 Essential (primary) hypertension; Z79.4 Long term (current) use of insulin | CPT/HCPCS: 36416; 82948; G0463 ==